=== PATIENT | female | born 1935 | race Caucasian/White ===

== ENCOUNTER → 2023-12-29 08:37 | Outpatient (CLI) | payer OTHER, SELFPAY ==
--- NOTE | 2023-12-29 | DI.RAD.S_ITS ---
PROCEDURE: FL BARIUM SWALLOW W SPEECH INDICATIONS: Dysphagia, unspecified COMPARISON: TECHNIQUE: Examination was conducted in conjunction with speech pathology per standard protocol. In the lateral projection, filming was performed of the patient swallowing. AP projection filming may also be performed with patient swallowing. COMPARISON: [facility], MR, MR NECK WITH/WITHOUT CONTRAST, 08/21/2023, 12:25. FINDINGS: Function: There is trace silent laryngotracheal penetration/aspiration. No pathologic vallecular pooling. Morphology: No cricopharyngeal bar is identified. No cervical esophageal webs. There is a small Zenker's diverticulum in the upper esophagus. No strictures. The patient was unable to swallow a calibrated barium pill. IMPRESSION: 1. Trace silent laryngeal penetration/aspiration. Please see separate speech pathologist's report. 2. A small Zenker's diverticulum. 3. The patient was unable to swallow a calibrated barium pill. Dictated by: Gerald West M.D. on 12/29/2023 at 13:49 Approved by: Gerald West M.D. on 12/29/2023 at 13:54
--- NOTE | 2023-12-29 16:52 | ST.SWALLOW ---
Visit Care Team Role Provider Type ONEIL Call Primary Care Provider Non-Staff Specialty: Nursing Address: [address] [place] [address], [id number] Email: Sohail Irene MD Attending Provider Physician Referring Provider Specialty: Ear, Nose, Throat Address: [address] [place] [address], [address] Email: [email or web address] Modified Barium Swallow Study MANAGER MARKET RESEARCH Modified Barium Swallow Study Start: 12/29/23 15:23 Freq: Status: Active Protocol: Document 12/29/23 15:23 LNK (Rec: 12/29/23 16:52 LNK [id number]) Modified Barium Swallow Study Total Time Visit Start Time 09:00 Visit Stop Time 09:45 Total Visit Minutes [address] Irene, ENT Setting Setting Outpatient Care Patient Information Identification Type Name,Date of Patient History Pt was seen for a Modified Barium Swallow Study at the referral of Dr. Irene, ENT. According to the pt and her physician's notes, the pt has experienced dysphagia for several years. She also stated that over the past 6-12 months her swallowing has become worse. She reports an ongoing difficulty with solid foods sticking in her throat; she sometimes has difficulty with swallowing liquids. Medications need to be crushed /chewed in order for her to swallow them. In 2019, pt reported having an endoscopy performed on [place] using an adult-sized scope instead of requested pediatric scope. She subsequently had severe dysphagia for a week. Since then she has been very careful when eating; she takes small bites and sips, eating slowly. She denies aspiration and/or swelling with eating or drinking. 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 Pt was seen in [place] by speech pathology for swallow exercises. Pt stated she thinks the exercises were beneficial. Subjective Observations Pt was seated in the fluoroscopy chair with directions and procedures described. Pt was familiar with the procedure and agreed to continue. Patient Positioning Position View Lat-A/P Imaging Lateral View Textures Administered Trials Presented Thin Liquid via Spoon (IDDSI 0 ),Thin Liquid via Cup (IDDSI 0 ),Extremely Thick Liquid via Spoon (IDDSI 4),Regular (IDDSI 7) Barium Tablet Yes The IDDSI Framework Protocol: IDDSI.1 Oral Impairment Source: The Modified Barium Swallow Impairment Profile (MBSImP??) Lip Closure No labial escape Tongue Control During Bolus Hold Cohesive bolus between tongue to palatal seal Bolus Preparation/Mastication Slow prolonged chewing/mashing with complete re-collection Bolus Transport/Lingual Motion Brisk tongue motion Oral Residue Complete oral clearance Initiation of Pharyngeal Swallow Bolus head in valleculae Additional Oral Impairment Observations OME and DKS were observed to be WNL. Pt's dentition was natural in good hygiene. Mastication was in a rotary pattern. The pt chewed the cookie trial well, needing time to create a soft bolus, per her typical swallow pattern. Oral phase was noted to be WFL . Pharyngeal Impairment Source: The Modified Barium Swallow Impairment Profile (MBSImP??) Soft Palate Elevation No bolus between soft palate & pharyngeal wall Laryngeal Elevation Part.sup.move.thyroid cart/ part.approx.arytenoids to epiglot.petiole Anterior Hyoid Excursion Partial anterior movement Epiglottic Movement Complete inversion Laryngeal Vestibular Closure Complete; no air/contrast in laryngeal vestibule Pharyngeal Stripping Wave Present - diminished Pharyngoesophageal Segment Opening Partial distention/partial duration; partial obstruction of flow Tongue Base Retraction Wide column of contrast/air betwn tongue base & post. pharyngeal wall Pharyngeal Residue Collection of residue within/ on pharyngeal structures Location Diffuse (>3 areas) Additional Pharyngeal Impairment Pt presented with complicated Observations pharyngeal swallow phase. Tongue base retraction was observed to be moderately weak with reduced hyolaryngeal elevation and movement; however, the epiglottis was observed to invert completely with good seal of the laryngeal vestibule. No penetration or aspiration was observed. Trials of semi solid and solids were most difficult for the pt to swallow. Liquids were swallowed with 2-3 swallow attempts. Solid and semisolid trials required 10+ swallow attempts with liquid wash need for the last two of those attempts. 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 This resulted in pooling above and below the occlusion. Additionally a small diverticulum on the right side of the esophagus was seen below the point of occlusion. The pt presented with severe pharyngeal phase dysphagia due to structural changes affecting bolus flow from the pharynx to the esophagus and stomach A/P View Textures Administered Trials Presented Thin Liquid via Cup (IDDSI 0) The IDDSI Framework Protocol: IDDSI.1 A/P View Observations Pharyngeal Contraction Unilateral bulging Esophageal Clearance Upright Position Esophageal retention w/ retrograde flow thru pharyngoesoph segment Esophageal Function Slowed Clearing,Reverse Peristalsis,Narrowing Additional A-P Observations In the LATERAL View, The upper esophageal sphincter opening was seen to be restricted in extension and duration, resulting in the need for many small boluses passing into the esophagus over multiple swallows (see pharyngeal phase description). 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 This resulted in pooling above and below the occlusion. Additionally a small diverticulum on the right side of the esophagus was seen below the point of occlusion. AP VIEW: In addition to the observations described in the previous paragraph, esophageal retention near the LES was noted with slowed clearing and narrowing. Unilateral (to the left) bulging re: pharyngeal contraction with the small diverticulum noted on the right side of the esophagus. Pharyngeal pooling was seen in the valeculla the pyriform sinuses and the diverticulum. The pt was unable to swallow a barium tablet whole and when cut in half. She needed to spit out each tablet trial. The lower esophagus had contrast retention observed with narrowing to the LES. Clinical Impressions Dysphagia Type Pharyngeal,Esophageal Findings The pt presented with severe pharyngoesophageal phase dysphagia due to structural changes affecting bolus flow from the oral cavity to the esophagus and stomach. Please review esophageal and pharyngeal phase summaries for specific details. Rehabilitation Potential Fair Patient Appropriate for Therapy Yes: Refresher therapy re: base of tongue exercises and review of swallow Recommendations Diet Liquids Order Thin (IDDSI 0) Diet Order Soft & Bite-sized (IDDSI 6) Medication Recommendation Crushed,Crushed in Carrier Comments Pt currently using swallow strategies that appear to be effective for her. Aspiration Precautions Recommended Precautions Alternate Liquids/Solids,Small Bites/Sips Additional Precautions Additional swallows a needed Treatment Plan Therapy Recommendations Outpatient Speech Therapy Recommended Referrals GI Consult,ENT Consult,Dietary Consult Therapy Strategy Recommendations Liquids from Cup,Small Bites and Sips,Alternate Liquids/ Solids
== END ==
PROVIDERS: PCP Nurse Practitioner Family; Referring Provider Otolaryngology; Visit Provider Otolaryngology
DX: K22.5 Diverticulum of esophagus, acquired (principal); R13.10 Dysphagia, unspecified
CPT/HCPCS: 74230; 92611

== ENCOUNTER 2024-04-21 16:45 | Outpatient (RCR) | payer OTHER, SELFPAY ==
--- NOTE | 2024-01-26 17:14 | ST.OPIE ---
Visit Care Team Role Provider Type ONEIL Call Family Provider Non-Staff Primary Care Provider Specialty: Nursing Address: [address] [place] [address], [address] Email: Sohail Irene MD Attending Provider Physician Referring Provider Specialty: Ear, Nose, Throat Address: [address] [place] [address], [address] Email: [email or web address] Speech-Language Pathology Initial Evaluation REVENUE ACCOUNTANT Clinical Swallow Evaluation Start: 01/26/24 16:46 Freq: Status: Active Protocol: Document 01/26/24 16:47 MA (Rec: 01/26/24 17:14 MA [id number]) Clinical Swallow Evaluation Session Time Visit Start Time 13:45 Visit Stop Time 14:30 Total Visit Minutes 45 Visit Information Visit Number Initial Evaluation Plan of Care Dates 01/26/24-04/27/24 Insurance Information [place] Referral Referring Provider BARRY Conner Reason for Referral Dysphagia Setting Assessment Location Outpatient Care Visit Type Note Type Initial evaluation Next Note Type Next Note Type Treatment Note Patient Information Identification Type Name History Pt is an 88 year old female seen this date for swallow evalution d/t dx of dysphagia, pharyngoesophageal. She was initially referred for a MBS at the referral of Dr. Irene ENT. She was then referred for speech therapy d/t MBS results. Pt was seen for a Modified According to the pt and her physician's notes, the pt has experienced dysphagia for several years. She also stated that over the past 6-12 months her swallowing has become worse. She reports an ongoing difficulty with solid foods sticking in her throat; she sometimes has difficulty with swallowing liquids. Medications need to be crushed /chewed in order for her to swallow them. In 2019, pt reported having an endoscopy performed on [place] using an adult-sized scope instead of requested pediatric scope. She subsequently had severe dysphagia for a week. Since then she has been very careful when eating; she takes small bites and sips, eating slowly. She denies aspiration and/or swelling with eating or drinking. 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 Pt was seen in [place] by speech pathology for swallow exercises. Pt stated she thinks the exercises were beneficial. [facility] impressions/ results from 12/29/23 are as follows: The pt presented with severe pharyngoesophageal phase dysphagia due to structural changes affecting bolus flow from the oral cavity to the esophagus and stomach. Please review esophageal and pharyngeal phase summaries for specific details. Rehabilitation Potential Fair Patient Appropriate for Therapy Yes: Refresher therapy re: base of tongue exercises and review of swallow Recommendations Diet Liquids Order Thin (IDDSI 0) Diet Order Soft & Bite-sized (IDDSI 6) Medication Recommendation Crushed,Crushed in Carrier Comments Pt currently using swallow strategies that appear to be effective for her. Aspiration Precautions Recommended Precautions Alternate Liquids/ Solids,Small Bites/Sips Additional Precautions Additional swallows a needed Treatment Plan Therapy Recommendations Outpatient Speech Therapy Recommended Referrals GI Consult,ENT Consult,Dietary Consult Therapy Strategy Recommendations Liquids from Cup,Small Bites and Sips,Alternate Liquids/ Solids Subjective Observations Pt reports she lives at home with her daughter. She reports baseline diet as regular solids and thin liquids, however can't eat too much. She denies any recent weight loss. She states she has to eat slowly and take small bites. She reports she has to call on Friday to schedule appointment with GI. She states she does not want to schedule any appointments until she knows when her GI appointment is. She said she will call outpatient clinic to schedule that appointment once she knows more about GI. Additionally, she reports she has swollen submandibular glands which may be impacting swallow. Reported by Patient/Caregiver Pain/Discomfort No Other Symptoms Difficulty swallowing liquids, Difficulty swallowing pills, Difficulty swallowing solids Current Diet Regular (IDDSI 7) Baseline Feeding Method Independent in self-feeding The IDDSI Framework Protocol: IDDSI.1 Objective Assessment Mental Status Alert,Responsive,Cooperative Comment OME was observed to be WNL. Pt's dentition was natural in good hygiene. Food and Liquid Trials Position During Assessment Upright (90 degrees) Liquids Trialed Thin (IDDSI 0) Solid Trials Regular (IDDSI 7) Administration Type Cup single sip,Self-feeding Oral Impairment Within normal limits Oral Phase Comments Pt consumed 2 jagdish crackers and about 4 oz of water via cup. For jagdish crackers, she demonstrated small bites, prolonged mastication however adequate bolus formation and control, timely ap transport, minimal residue. She independently alternated liquids/solids to assist with intake. For water via cup she demonstrated adequate sip size and rate, good oral acceptance and containment. Pharyngeal Impairment Mildly impaired Pharyngeal Phase Comments Pt reported no occurrences of food stuck in throat. No overt s/s of aspiration/penetration observed. She reports she has most difficulties swallowing gummy/chewy foods. Fatigue/Endurance Endurance WNL The IDDSI Framework Protocol: IDDSI.1 Findings Swallowing Function Pharyngoesophageal phase dysphagia Severity of Swallow Impairment Moderately impaired Based on Cognitive status Comment Pt presents with moderate pharyngoesophageal phase dysphagia based on impressions from MBS which include: A large CP bar was observed to occlude the esophagus at the C4-C6 level. This resulted in pooling above and below the occlusion. Additionally a small diverticulum on the right side of the esophagus was seen below the point of occlusion. ST is warranted in order to educate Pt on swallow exercises and ensure Pt is meeting primary nutrition/ hydration needs. Impact on Safety and Functioning Risk for inadequate nutrition/ hydration Recommendations Instrumental Assessment No Swallowing Treatment Yes Frequency 1x/week Duration 3 months Recommended Solids Soft & Bite-sized (IDDSI 6) Recommended Liquids Thin (IDDSI 0) Other Recommendations ST recommends soft solids and thin liquids or as tolerated by patient. ST also recommends Pt utilize safe swallowing strategies indicated below. ST provided educational handout on base of tongue strengthening exercises to assist with intake. Safety Precautions/Swallowing Remain upright (90 degrees) Recommendations during all oral intake,Upright position at least 30 minutes after meals,Small bites and sips when eating,Slow rate; swallow between bites, Alternate liquids and solids Medication Recommendations Crushed,Crushed in Carrier Comments Pt currently using swallow strategies that appear to be effective for her. Education Patient/Caregiver Education Described results of evaluation,Patient expressed understanding of evaluation, Patient expressed agreement with goals & treatment plans, Patient requires further education/training Goals Short-term Goals STG 1: Pt will tolerate prescribed diet with <5% overt s/s of aspiration/dysphagia with use of compensatory swallowing strategies and minimal cues. STG 2: Pt will complete hyolaryngeal strengthening exercises for improved pharyngeal phase of swallow with minimal cueing with 90% accuracy. Long-term Goals LTG 1: Patient will consume safest and most efficient least restrictive diet with no clinical s/s of aspiration or dysphagia 100% of the time in order to meet primary nutrition/hydration needs.
--- NOTE | 2024-01-26 17:14 | ST.OP.POCP ---
Addendum entered and electronically signed by Carlos Brown 01/26/24 17:15: POC is for an adult not pediatric. Original Note: Physical, Occupational & Speech Therapy At [facility] Visit Care Team Role Provider Type ONEIL Call Family Provider Non-Staff Primary Care Provider Address: [address] [place] [address], [address] Sohail Irene MD Attending Provider Physician Referring Provider Address: [address] [place] [address], [address] Speech Pathology Plan of Care Plan of Care Dates 01/26/24-04/27/24 Patient History Pt is an 88 year old female seen this date for swallow evalution d/t dx of dysphagia, pharyngoesophageal. She was initially referred for a MBS at the referral of Dr. Irene, ENT. She was then referred for speech therapy d/t MBS results. Pt was seen for a Modified According to the pt and her physician's notes, the pt has experienced dysphagia for several years. She also stated that over the past 6-12 months her swallowing has become worse. She reports an ongoing difficulty with solid foods sticking in her throat; she sometimes has difficulty with swallowing liquids. Medications need to be crushed /chewed in order for her to swallow them. In 2019, pt reported having an endoscopy performed on [place] using an adult-sized scope instead of requested pediatric scope. She subsequently had severe dysphagia for a week. Since then she has been very careful when eating; she takes small bites and sips, eating slowly. She denies aspiration and/or swelling with eating or drinking. 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 Pt was seen in [place] by speech pathology for swallow exercises. Pt stated she thinks the exercises were beneficial. MBS impressions/results from 12/29/23 are as follows: The pt presented with severe pharyngoesophageal phase dysphagia due to structural changes affecting bolus flow from the oral cavity to the esophagus and stomach. Please review esophageal and pharyngeal phase summaries for specific details. Rehabilitation Potential Fair Patient Appropriate for Therapy Yes: Refresher therapy re: base of tongue exercises and review of swallow Recommendations Diet Liquids Order Thin ( IDDSI 0) Diet Order Soft & Bite-sized (IDDSI 6) Medication Recommendation Crushed,Crushed in Carrier Comments Pt currently using swallow strategies that appear to be effective for her. Aspiration Precautions Recommended Precautions Alternate Liquids/Solids,Small Bites/Sips Additional Precautions Additional swallows a needed Treatment Plan Therapy Recommendations Outpatient Speech Therapy Recommended Referrals GI Consult,ENT Consult,Dietary Consult Therapy Strategy Recommendations Liquids from Cup,Small Bites and Sips,Alternate Liquids/ Solids Short-term Goals STG 1: Pt will tolerate prescribed diet with <5% overt s/s of aspiration/dysphagia with use of compensatory swallowing strategies and minimal cues. STG 2: Pt will complete hyolaryngeal strengthening exercises for improved pharyngeal phase of swallow with minimal cueing with 90% accuracy. Long-term Goals LTG 1: Patient will consume safest and most efficient least restrictive diet with no clinical s/s of aspiration or dysphagia 100% of the time in order to meet primary nutrition/ hydration needs. Electronically Signed by: STEFF Brown 01/26/24 [id number] If you are in agreement with this Plan of Care, please return a signed and dated copy. I have reviewed this Plan of Care and certify that the skilled therapy services above are required to meet the patient?s needs. Physician Signature Date Printed Name and Credentials Clinical Instructor Signature Printed Name and Credentials
--- NOTE | 2024-02-16 15:05 | ST.OPTN ---
Visit Care Team Role Provider Type ONEIL Call Family Provider Non-Staff Primary Care Provider Address: [address] [place] [address], [place], [address] Sohail Irene MD Attending Provider Physician Referring Provider Address: [facility] [place], [address] INFORMATION SUPPORT PROJECT MANAGER Treatment Note INFORMATION SUPPORT PROJECT MANAGER Treatment Note Start: 02/16/24 14:49 Freq: Status: Active Protocol: Document 02/16/24 14:49 MA (Rec: 02/16/24 14:53 MA [id number]) Speech Pathology Treatment Note Session Time Visit Start Time 14:30 Visit Stop Time 15:00 Total Visit Minutes 30 Visit Information Visit Number 2 Plan of Care Dates 01/26/24-04/27/24 Setting Treatment Setting Outpatient Care General Information Patient History Pt is an 88 year old female seen this date for swallow evalution d/t dx of dysphagia, pharyngoesophageal. She was initially referred for a MBS at the referral of Dr. Irene, ENT. She was then referred for speech therapy d/t MBS results. Pt was seen for a Modified According to the pt and her physician's notes, the pt has experienced dysphagia for several years. She also stated that over the past 6-12 months her swallowing has become worse. She reports an ongoing difficulty with solid foods sticking in her throat; she sometimes has difficulty with swallowing liquids. Medications need to be crushed /chewed in order for her to swallow them. In 2019, pt reported having an endoscopy performed on [place] using an adult-sized scope instead of requested pediatric scope. She subsequently had severe dysphagia for a week. Since then she has been very careful when eating; she takes small bites and sips, eating slowly. She denies aspiration and/or swelling with eating or drinking. 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 Pt was seen in [place] by speech pathology for swallow exercises. Pt stated she thinks the exercises were beneficial. MBS impressions/ results from 12/29/23 are as follows: The pt presented with severe pharyngoesophageal phase dysphagia due to structural changes affecting bolus flow from the oral cavity to the esophagus and stomach. Please review esophageal and pharyngeal phase summaries for specific details. Rehabilitation Potential Fair Patient Appropriate for Therapy Yes: Refresher therapy re: base of tongue exercises and review of swallow Recommendations Diet Liquids Order Thin (IDDSI 0) Diet Order Soft & Bite-sized (IDDSI 6) Medication Recommendation Crushed,Crushed in Carrier Comments Pt currently using swallow strategies that appear to be effective for her. Aspiration Precautions Recommended Precautions Alternate Liquids/ Solids,Small Bites/Sips Additional Precautions Additional swallows a needed Treatment Plan Therapy Recommendations Outpatient Speech Therapy Recommended Referrals GI Consult,ENT Consult,Dietary Consult Therapy Strategy Recommendations Liquids from Cup,Small Bites and Sips,Alternate Liquids/ Solids Subjective Observations/Patient Presentation Pt arrived to therapy on time. Pt reports she has been very cautious about when she is eating. Objective Treatment Activities Swallow exercises Assessment Patient Response to Treatment Excellent Rehab Potential Excellent Impairments Identified Swallow Assessment of Improvement Pt brought in swallow exercises provided during last session. She reports she has been practicing exercises at home. Pt reports no changes to swallow. ST educated pt additional swallow exercises such as Wen and the Shaker exercise in order to address cricopharyngeal muscle dysfunction. ST provided a visual demonstration of exercises. Pt able to demonstrate understanding. She exhibited mild difficulties raising head during Shaker with ST recommending she start small and build up to 30 reps at a time and to not continue if any pain or discomfort arises. She completed all her swallow exercises, including Sierra and Effortful swallow 10x/each. Pt reports she has an appointment with GI the beginning of February and will schedule her next appointment for after that.
--- NOTE | 2024-03-15 14:14 | ST.OPTN ---
Visit Care Team Role Provider Type ONEIL Call Family Provider Non-Staff Primary Care Provider Address: [address] [place] [address], [place], [address] Sohail Irene MD Attending Provider Physician Referring Provider Address: [facility] [place], [address] SHINGLE BOLT CUTTER Treatment Note SHINGLE BOLT CUTTER Treatment Note Start: 02/16/24 14:49 Freq: Status: Active Protocol: Document 03/15/24 14:04 MA (Rec: 03/15/24 14:14 MA [id number]) Speech Pathology Treatment Note Session Time Visit Start Time 13:45 Visit Stop Time 14:20 Total Visit Minutes 35 Visit Information Visit Number 3 Plan of Care Dates 01/26/24-04/27/24 Setting Treatment Setting Outpatient Care General Information Patient History Pt is an 88 year old female seen this date for swallow evalution d/t dx of dysphagia, pharyngoesophageal. She was initially referred for a MBS at the referral of Dr. Irene, ENT. She was then referred for speech therapy d/t MBS results. Pt was seen for a Modified According to the pt and her physician's notes, the pt has experienced dysphagia for several years. She also stated that over the past 6-12 months her swallowing has become worse. She reports an ongoing difficulty with solid foods sticking in her throat; she sometimes has difficulty with swallowing liquids. Medications need to be crushed /chewed in order for her to swallow them. In 2019, pt reported having an endoscopy performed on [place] using an adult-sized scope instead of requested pediatric scope. She subsequently had severe dysphagia for a week. Since then she has been very careful when eating; she takes small bites and sips, eating slowly. She denies aspiration and/or swelling with eating or drinking. 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 Pt was seen in [place] by speech pathology for swallow exercises. Pt stated she thinks the exercises were beneficial. MBS impressions/ results from 12/29/23 are as follows: The pt presented with severe pharyngoesophageal phase dysphagia due to structural changes affecting bolus flow from the oral cavity to the esophagus and stomach. Please review esophageal and pharyngeal phase summaries for specific details. Rehabilitation Potential Fair Patient Appropriate for Therapy Yes: Refresher therapy re: base of tongue exercises and review of swallow Recommendations Diet Liquids Order Thin (IDDSI 0) Diet Order Soft & Bite-sized (IDDSI 6) Medication Recommendation Crushed,Crushed in Carrier Comments Pt currently using swallow strategies that appear to be effective for her. Aspiration Precautions Recommended Precautions Alternate Liquids/ Solids,Small Bites/Sips Additional Precautions Additional swallows a needed Treatment Plan Therapy Recommendations Outpatient Speech Therapy Recommended Referrals GI Consult,ENT Consult,Dietary Consult Therapy Strategy Recommendations Liquids from Cup,Small Bites and Sips,Alternate Liquids/ Solids Subjective Observations/Patient Presentation Pt arrived to therapy on time. Pt brought in her swallow exercises and reported she has been practicing and her swallow. She reports she will see the ENT at the beginning of March. Objective Treatment Activities Swallow exercises Assessment Patient Response to Treatment Excellent Rehab Potential Excellent Impairments Identified Swallow Assessment of Improvement Pt brought in swallow exercises provided during last session. She reports she has been practicing exercises at home. She reports difficulties with Mendolsohn. ST provided a visual demonstration and provided verbal instructions. Pt demonstrated understanding. Pt reports no difficulties with other exercises, however can only do 5 reps of Shaker at a time. ST recommends she start with 5 reps and build up to 30 reps at a time and to not continue if any pain or discomfort arises. She completed all her swallow exercises, including Sierra and Effortful swallow 10x/each . ST provided regular solids and thin liquids for Pt to utilize while completing swallow exercises. She consumed 1 jagdish cracker and 4 oz of thin juice via cup. She utilized effortful swallow with all swallows. For reg solids she demonstrated small bites, slow rate, no overt s/s of aspiration. She independently alternated liquids/solids to assist with intake and also reported she makes she to eat slow. ST recommends Pt continue swallow exercises at home.
--- NOTE | 2024-04-21 17:10 | ST.OPDS ---
Visit Care Team Role Provider Type ONEIL Wells Family Provider Non-Staff Primary Care Provider Address: [address] [place] [address], [place], [address] Sohail Irene MD Attending Provider Physician Referring Provider Address: [facility] [place], [address] ELECTRICAL ELECTRONICS TECHNICIAN Treatment Note ELECTRICAL ELECTRONICS TECHNICIAN Treatment Note Start: 02/16/24 14:49 Freq: Status: Active Protocol: Document 04/21/24 16:40 MA (Rec: 04/21/24 17:10 MA [id number]) Speech Pathology Treatment Note Session Time Visit Start Time 16:45 Visit Stop Time 17:15 Total Visit Minutes 30 Visit Information Visit Number 4 Plan of Care Dates 01/26/24-04/27/24 Setting Treatment Setting Outpatient Care General Information Patient History Pt is an 88 year old female seen this date for swallow evalution d/t dx of dysphagia, pharyngoesophageal. She was initially referred for a MBS at the referral of Dr. Irene, ENT. She was then referred for speech therapy d/t MBS results. Pt was seen for a Modified According to the pt and her physician's notes, the pt has experienced dysphagia for several years. She also stated that over the past 6-12 months her swallowing has become worse. She reports an ongoing difficulty with solid foods sticking in her throat; she sometimes has difficulty with swallowing liquids. Medications need to be crushed /chewed in order for her to swallow them. In 2019, pt reported having an endoscopy performed on [place] using an adult-sized scope instead of requested pediatric scope. She subsequently had severe dysphagia for a week. Since then she has been very careful when eating; she takes small bites and sips, eating slowly. She denies aspiration and/or swelling with eating or drinking. 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 Pt was seen in [place] by speech pathology for swallow exercises. Pt stated she thinks the exercises were beneficial. MBS impressions/ results from 12/29/23 are as follows: The pt presented with severe pharyngoesophageal phase dysphagia due to structural changes affecting bolus flow from the oral cavity to the esophagus and stomach. Please review esophageal and pharyngeal phase summaries for specific details. Rehabilitation Potential Fair Patient Appropriate for Therapy Yes: Refresher therapy re: base of tongue exercises and review of swallow Recommendations Diet Liquids Order Thin (IDDSI 0) Diet Order Soft & Bite-sized (IDDSI 6) Medication Recommendation Crushed,Crushed in Carrier Comments Pt currently using swallow strategies that appear to be effective for her. Aspiration Precautions Recommended Precautions Alternate Liquids/ Solids,Small Bites/Sips Additional Precautions Additional swallows a needed Treatment Plan Therapy Recommendations Outpatient Speech Therapy Recommended Referrals GI Consult,ENT Consult,Dietary Consult Therapy Strategy Recommendations Liquids from Cup,Small Bites and Sips,Alternate Liquids/ Solids Subjective Observations/Patient Presentation Pt arrived to therapy on time. Pt brought in her swallow exercises and reported she has been practicing and her swallow has improved slightly. She states that she saw the GI doctor recently, however reports not much came of it. Objective Short Term Goals STG 1: Pt will tolerate prescribed diet with <5% overt s/s of aspiration/dysphagia with use of compensatory swallowing strategies and minimal cues.- MET STG 2: Pt will complete hyolaryngeal strengthening exercises for improved pharyngeal phase of swallow with minimal cueing with 90% accuracy.- MET Cloth Napping Supervisor Goals LTG 1: Patient will consume safest and most efficient least restrictive diet with no clinical s/s of aspiration or dysphagia 100% of the time in order to meet primary nutrition/hydration needs.- MET Treatment Activities Swallow exercises Assessment Patient Response to Treatment Excellent Rehab Potential Excellent Impairments Identified Swallow Progress Towards Goals Goals Met,Appropriate for Discharge Assessment of Overall Progress Improving Assessment of Improvement Pt brought in swallow exercises provided during last session. She completed exercises, specifically Mend[place]ohn, Sierra, and effortful swallow 10x each requiring no cues. She reports she has not had any occurrences of food stuck in throat since doing swallow exercises. ST facilitated conversation in regards to going forward with therapy. Pt reports she would like to be discharged at this time d/t independent with swallow exercises and meeting goals with improved swallow function . ST encouraged Pt continue to complete swallow exercises at home and to return to therapy with a new referral if swallow becomes worse. Pt verbalized understanding. Reviewed with Patient Goals,Progress Being Made,Home Exercise Program Plan Frequency of Treatment No Further Therapy
== END 2024-04-22 15:22 | disposition home or self-care (01) ==
LOC: SP 16:45
PROVIDERS: Family Provider Nurse Practitioner Family; PCP Nurse Practitioner Family; Referring Provider Otolaryngology; Visit Provider Otolaryngology
DX: R13.14 Dysphagia, pharyngoesophageal phase (principal)
CPT/HCPCS: 92526; 92610

== ENCOUNTER 2025-08-03 13:45 | Outpatient (RCR) | payer OTHER, SELFPAY ==
--- NOTE | 2025-04-22 14:32 | PT.OIE ---
Current Diagnoses Other chronic pain (04/22/25) Pain in right shoulder (04/22/25) Pain in left shoulder (04/22/25) Pain in thoracic spine (04/22/25) Visit Care Team Role Provider Type ONEIL Harrison Attending Provider Non-Staff Family Provider Primary Care Provider Referring Provider Specialty: Medical Address: [address] [place] [address], [address] Email: Physical Therapy Initial Evaluation PT-OP-A Visit Information Start: 04/22/25 09:04 Freq: Status: Active Protocol: Document 04/22/25 13:59 KW (Rec: 04/22/25 14:29 KW Laptop) Out-Patient Physical Therapy Visit Information Visit Information Visit Type Initial Evaluation Visit Start Time 09:00 Visit Stop Time 09:45 Visit Number 1 Evaluation Information Evaluation Date 04/22/25 Precautions Precautions none PT-OP-B Current Condition Start: 04/22/25 09:04 Freq: Status: Active Protocol: Document 04/22/25 13:59 KW (Rec: 04/22/25 14:29 KW Laptop) Current Condition History of Current Condition Onset Date chronic Current Complaints B shoulder pain, upper thoracic pain, B hip and knee pain, toe pain History of Current Condition 89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 She walks 1/2 mile daily in community. Chooses to not use cane, trekking poles or walker. She is still driving. She is very limited in her eating due to a very extensive swallowing issue causes by trauma of a large tube during a medical procedure. Prior Treatments and Tests has not had dexa scan PT-OP-C Subjective Start: 04/22/25 09:04 Freq: Status: Active Protocol: Document 04/22/25 13:59 KW (Rec: 04/22/25 14:29 KW Laptop) Patient Questionnaires Oswestry Low Back Index Oswestry Score 18% Oswestry Impairment 1 to 19% Impaired (Score 1-19) Quick Dash- Upper Extremity Quick Dash UE Score 23% Quick Dash UE Impairment 20 to 39% Impaired (Score 20- 39) OP-PT Pain Assessment Pain Assessment Grid Paper Pain Assessment Grid Completed Yes Location R shoulder Pain Location Details r shoulder, L shoulder, knees, back, hips all the same Intensity 5 Scale Used Numeric (0 - 10) Description Aching,Burning,Cramping,Dull, Pinching,Pulling,Sharp Frequency Frequent Pain Aggravating Factors Position,Changing Position,ADL 's Pain Alleviating Factors Cold,Heat,Medication PT-OP-D Balance Start: 04/22/25 09:04 Freq: Status: Active Protocol: Document 04/22/25 13:59 KW (Rec: 04/22/25 14:29 KW Laptop) OP-PT Balance Assessment Standing Balance Static Standing Balance Ability Good Dynamic Standing Balance Ability Fair Standing Balance Comments LOB with head turns Lara Fall Scale Copyright Permission PT-OP-E Functional Tests Start: 04/22/25 09:04 Freq: Status: Active Protocol: Document 04/22/25 13:59 KW (Rec: 04/22/25 14:29 KW Laptop) Functional Tests 30 Second Sit to Stand Test Score 5 Comments pain in legs and feet Timed Up and Go (TUG) Score 12 TUG Impairment Rating 20 to <40% Impaired (Score 12- 13) PT-OP-F Manual Assessment Start: 04/22/25 09:04 Freq: Status: Active Protocol: Document 04/22/25 13:59 KW (Rec: 04/22/25 14:29 KW Laptop) Manual Assessments Joint Mobility Assessment Joint Mobility Assessment stiffness B hips posterior/ inferior capsules stiffness T-spine, kyphosis PT-OP-G Mobility & Gait Start: 04/22/25 09:04 Freq: Status: Active Protocol: Document 04/22/25 13:59 KW (Rec: 04/22/25 14:29 KW Laptop) OP Mobility Evaluation Bed Mobility Rolling cues for log roll, breathing, bending knees Supine to and from Sit cues to keep knees flexed, breathing Transfers Sit to Stand indep with use of hands Functional Movements Squats Indep, pain in hips/knees, thighs OP Gait Assessment Gait Gait Assistance Required: Standby Assistance Distance (Feet) 500 Assistive Devices Assistive Device None Gait Deviations General Gait Pattern Flexed Trunk Factors Limiting Gait Function Factors Limiting Gait Function Poor Balance Comments Gait Comments significant FHP, LOB with head turns PT-OP-J Posture/Palpation/Skin Start: 04/22/25 09:04 Freq: Status: Active Protocol: Document 04/22/25 13:59 KW (Rec: 04/22/25 14:29 KW Laptop) Posture Evaluation Position Standing Head/C-Spine Posture Flexed,Forward Head Shoulder Posture (L) Rounded,(R) Rounded Sitting Evaluation View Lateral Head/C-Spine Posture Flexed,Forward Head T-Spine Posture Rotation Left Shoulder Posture (L) Rounded,(R) Rounded Scapula Posture (L) Rotated Down,(R) Rotated Down Pelvis Posture Posterior Tilted Weight Distribution Weight Shifted Right PT-OP-K Range of Motion Start: 04/22/25 09:04 Freq: Status: Active Protocol: Document 04/22/25 13:59 KW (Rec: 04/22/25 14:29 KW Laptop) Lumbar Spine Range of Motion Lumbar Spine Active Testing Position Standing Flexion 70 Comments fingers to top of shoes, forward bend Shoulder Goniometric Range of Motion Shoulder left Shoulder ROM WFL Yes Testing Position Supine right Shoulder ROM WFL No Testing Position Supine Flexion 120 External Rotation at 90 degrees 80 Abduction Internal Rotation 90 Hip Goniometric Range of Motion Hip left Hip ROM WFL No Testing Position Supine Flexion w/Knee Flexed 90 Straight Leg Raise 75 Internal Rotation 10 External Rotation 25 right Hip ROM WFL No Testing Position Supine Flexion w/Knee Flexed 90 Straight Leg Raise 75 Internal Rotation 10 External Rotation 25 Knee Goniometric Range of Motion Knee Left Knee ROM WFL No Patient Position Supine Flexion Passive (degrees) 105 Extension Passive (degrees) 0 Right Knee ROM WFL No Patient Position Supine Flexion Passive (degrees) 110 Extension Passive (degrees) 0 PT-OP-M Strength Start: 04/22/25 09:04 Freq: Status: Active Protocol: Document 04/22/25 13:59 KW (Rec: 04/22/25 14:29 KW Laptop) Shoulder Strength Shoulder Manual Muscle Testing Right Flexion 4 Good Abduction (C5) 4 Good External Rotation 4 Good Internal Rotation 4 Good Left Flexion 4 Good Extension 4 Good Abduction (C5) 4 Good External Rotation 4 Good Internal Rotation 4 Good Hip Strength Hip Manual Muscle Testing Left Flexion (L2) 4- Good- Abduction 4- Good- External Rotation 4- Good- Internal Rotation 4- Good- Right Flexion (L2) 4- Good- Abduction 4- Good- External Rotation 4- Good- Internal Rotation 4- Good- Knee Strength Knee Manual Muscle Testing Left Flexion (S2) 4- Good- Extension (L3) 4- Good- Right Flexion (S2) 4- Good- Extension (L3) 4- Good- PT-OP-Q Treatments Start: 04/22/25 09:04 Freq: Status: Active Protocol: Document 04/22/25 13:59 KW (Rec: 04/22/25 14:29 KW Laptop) Therapeutic Exercises Standing Exercises gastroc stretch Standing Exercise Name using wall and JOSE wedge Side bilateral Reps/Minutes 3 x 30 sec Neuro Re-Education Treatment Balance Activities standing chair balance Details handout issued Comments stand at chair, back to corner or bed narrow BOW, tandem with head turns Self-Care/Home Management Treatment Education Patient Education Body Mechanics,Fall Risk,Home Exercise Program,Joint Protection,Pain Management, Posture,Safety Caregiver Education recommend trekking poles for balance and posture shoe list issued for more supportive shoes posture education PT-OP-T Assessment and Plan Start: 04/22/25 09:04 Freq: Status: Active Protocol: Document 04/22/25 13:59 KW (Rec: 04/22/25 14:29 KW Laptop) Physical Therapy Assessment Rehab Potential Rehabilitation Potential Fair Evaluation Complexity Number of Personal Factors/Comorbidities 3 or More Number of Body Systems Impaired 4 or More Clinical Presentation at Evaluation Unstable Impairments Impairments Activity Tolerance,Balance, Edema,Functional Activities, Gait,Pain,Posture,ROM,Strength Goals Four Impairment impaired gait Short Term Goal (STG) patient ambulates with at least 1 trekking pole to improve balance and posture Three Impairment lack of HEP Short Term Goal (STG) pt demonstrates indep with HEP STG Duration 6 weeks Two Impairment impaired DASH score 23 % Short Term Goal (STG) improve DASH score 50% STG Duration 6 weeks One Impairment LEFS score 18% Short Term Goal (STG) improved LEFS score 50% STG Duration 6 weeks Assessment Summary Assessment 89 yo female presents to PT with multiple joint pains. She has NOT had a dexa scan and has significant Sarcopenia. She has lost significant wait since her swallowing issues started, per her daughter. She has a difficult affect and struggles to communicate her needs during evaluation. She is at significant risk for falls and really should be using an assistive device. Pt will benefit from a course of skilled PT to address deficits in strength, ROM, balance, gait in order to maximize her independence. Physical Therapy Plan Frequency and Duration Frequency of Treatment 2x/Week Duration of treatment (weeks) 6 Plan of Care Start Date 04/22/25 Plan of Care End Date 06/22/25 Therapeutic Interventions Therapeutic Interventions Balance Training,Gait Training ,Home Exercise Program,Joint Mobilizations,Manual Therapy, Neuromuscular Re-education, Orthotic/Prosthetic Management ,Patient/Caregiver Education, Self-Care/Home Management,Soft Tissue Mobilization,Taping, Therapeutic Activities, Therapeutic Exercises Modalities Cold Pack/Ice Massage,Electric Stimulation,Hot Packs, Ultrasound Next Visit Focus/Plan Next Note Type Treatment Note Next Visit Plan Nu raymond // bars for balance gait with head turns and trekking pole
--- NOTE | 2025-04-27 16:57 | PT.OTN ---
Current Diagnoses Other chronic pain (04/27/25) Pain in right shoulder (04/27/25) Pain in left shoulder (04/27/25) Pain in thoracic spine (04/27/25) Physical Therapy Treatment Note PT-OP-A Visit Information Start: 04/22/25 09:04 Freq: Status: Active Protocol: Document 04/27/25 16:18 KW (Rec: 04/27/25 16:57 KW Laptop) Out-Patient Physical Therapy Visit Information Visit Information Visit Type Treatment Note Visit Start Time 16:00 Visit Stop Time 16:45 Visit Number 2 Evaluation Information Evaluation Date 04/22/25 Precautions Precautions none PT-OP-B Current Condition Start: 04/22/25 09:04 Freq: Status: Active Protocol: Document 04/22/25 13:59 KW (Rec: 04/22/25 14:29 KW Laptop) Current Condition History of Current Condition Onset Date chronic Current Complaints B shoulder pain, upper thoracic pain, B hip and knee pain, toe pain 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 She walks 1/2 mile daily in community. Chooses to not use cane, trekking poles or walker. She is still driving. She is very limited in her eating due to a very extensive swallowing issue causes by trauma of a large tube during a medical procedure. Prior Treatments and has not had dexa scan Tests PT-OP-C Subjective Start: 04/22/25 09:04 Freq: Status: Active Protocol: Document 04/27/25 16:18 KW (Rec: 04/27/25 16:57 KW Laptop) OP-PT Subjective Patient Comments Patient Comments I've never done PT before and I think I really need this. No, I don't walk with a cane or stick when I go walk around the park. PT-OP-D Balance Start: 04/22/25 09:04 Freq: Status: Active Protocol: Document 04/22/25 13:59 KW (Rec: 04/22/25 14:29 KW Laptop) OP-PT Balance Assessment Standing Balance Static Standing Good Balance Ability Dynamic Standing Fair Balance Ability Standing Balance LOB with head turns Comments Lara Fall Scale Copyright Permission PT-OP-E Functional Tests Start: 04/22/25 09:04 Freq: Status: Active Protocol: Document 04/22/25 13:59 KW (Rec: 04/22/25 14:29 KW Laptop) Functional Tests 30 Second Sit to Stand Test Score 5 Comments pain in legs and feet Timed Up and Go (TUG) Score 12 TUG Impairment 20 to <40% Impaired (Score 12-13) Rating PT-OP-F Manual Assessment Start: 04/22/25 09:04 Freq: Status: Active Protocol: Document 04/22/25 13:59 KW (Rec: 04/22/25 14:29 KW Laptop) Manual Assessments Joint Mobility Assessment Joint Mobility stiffness B hips posterior/inferior capsules Assessment stiffness T-spine, kyphosis PT-OP-G Mobility & Gait Start: 04/22/25 09:04 Freq: Status: Active Protocol: Document 04/22/25 13:59 KW (Rec: 04/22/25 14:29 KW Laptop) OP Mobility Evaluation Bed Mobility Rolling cues for log roll, breathing, bending knees Supine to and from cues to keep knees flexed, breathing Sit Transfers Sit to Stand indep with use of hands Functional Movements Squats Indep, pain in hips/knees, thighs OP Gait Assessment Gait Gait Assistance Standby Assistance Required: Distance (Feet) 500 Assistive Devices Assistive Device None Gait Deviations General Gait Pattern Flexed Trunk Factors Limiting Gait Function Factors Limiting Poor Balance Gait Function Comments Gait Comments significant FHP, LOB with head turns PT-OP-J Posture/Palpation/Skin Start: 04/22/25 09:04 Freq: Status: Active Protocol: Document 04/22/25 13:59 KW (Rec: 04/22/25 14:29 KW Laptop) Posture Evaluation Position Standing Head/C-Spine Posture Flexed,Forward Head Shoulder Posture (L) Rounded,(R) Rounded Sitting Evaluation View Lateral Head/C-Spine Posture Flexed,Forward Head T-Spine Posture Rotation Left Shoulder Posture (L) Rounded,(R) Rounded Scapula Posture (L) Rotated Down,(R) Rotated Down Pelvis Posture Posterior Tilted Weight Distribution Weight Shifted Right PT-OP-K Range of Motion Start: 04/22/25 09:04 Freq: Status: Active Protocol: Document 04/22/25 13:59 KW (Rec: 04/22/25 14:29 KW Laptop) Lumbar Spine Range of Motion Lumbar Spine Active Testing Position Standing Flexion 70 Comments fingers to top of shoes, forward bend Shoulder Goniometric Range of Motion Shoulder left Shoulder ROM WFL Yes Testing Position Supine right Shoulder ROM WFL No Testing Position Supine Flexion 120 External Rotation at 80 90 degrees Abduction Internal Rotation 90 Hip Goniometric Range of Motion Hip left Hip ROM WFL No Testing Position Supine Flexion w/Knee 90 Flexed Straight Leg Raise 75 Internal Rotation 10 External Rotation 25 right Hip ROM WFL No Testing Position Supine Flexion w/Knee 90 Flexed Straight Leg Raise 75 Internal Rotation 10 External Rotation 25 Knee Goniometric Range of Motion Knee Left Knee ROM WFL No Patient Position Supine Flexion Passive ( 105 degrees) Extension Passive ( 0 degrees) Right Knee ROM WFL No Patient Position Supine Flexion Passive ( 110 degrees) Extension Passive ( 0 degrees) PT-OP-M Strength Start: 04/22/25 09:04 Freq: Status: Active Protocol: Document 04/22/25 13:59 KW (Rec: 04/22/25 14:29 KW Laptop) Shoulder Strength Shoulder Manual Muscle Testing Right Flexion 4 Good Abduction (C5) 4 Good External Rotation 4 Good Internal Rotation 4 Good Left Flexion 4 Good Extension 4 Good Abduction (C5) 4 Good External Rotation 4 Good Internal Rotation 4 Good Hip Strength Hip Manual Muscle Testing Left Flexion (L2) 4- Good- Abduction 4- Good- External Rotation 4- Good- Internal Rotation 4- Good- Right Flexion (L2) 4- Good- Abduction 4- Good- External Rotation 4- Good- Internal Rotation 4- Good- Knee Strength Knee Manual Muscle Testing Left Flexion (S2) 4- Good- Extension (L3) 4- Good- Right Flexion (S2) 4- Good- Extension (L3) 4- Good- PT-OP-Q Treatments Start: 04/22/25 09:04 Freq: Status: Active Protocol: Document 04/27/25 16:18 KW (Rec: 04/27/25 16:57 KW Laptop) Cardio Equipment Recumbent Stepper (Sci-Fit) Duration (Minutes) 6 Other BP 145/76 O2 Sats 95% HR 73 Therapeutic Exercises Standing Exercises Hip swings Standing Exercise hip swings, squats with good alignment, heel raises Name Reps/Minutes 10 each gastroc stretch Standing Exercise using wall and JOSE wedge Name Side bilateral Reps/Minutes 3 x 30 sec Gait Training Gait Activity head turns Description walking with head turns Distance/Duration 150 ft Comments head turns, R/L, cues for head up and arm swings Neuro Re-Education Treatment Balance Activities foam pad march Details foam pad marching, wt shifting, head up eyes up light gymnastics coach BOSU Details BOSU wt shift AP/ML, head up, light gymnastics coach on bars Comments CGA with belt stepping over hurdles Details step over, front/back, sideways L/R Reps/Duration x 10 // bars series Details tandem stance head turns, narrow DORIS, head turns Reps/Duration 3 min PT-OP-T Assessment and Plan Start: 04/22/25 09:04 Freq: Status: Active Protocol: Document 04/27/25 16:18 KW (Rec: 04/27/25 16:57 KW Laptop) Physical Therapy Assessment Rehab Potential Rehabilitation Fair Potential Evaluation Complexity Number of Personal 3 or More Factors/ Comorbidities Number of Body 4 or More Systems Impaired Clinical Unstable Presentation at Evaluation Impairments Impairments Activity Tolerance,Balance,Edema,Functional Activities, Gait,Pain,Posture,ROM,Strength Goals Four Impairment impaired gait Short Term Goal (STG patient ambulates with at least 1 trekking pole to ) improve balance and posture Three Impairment lack of HEP Short Term Goal (STG pt demonstrates indep with HEP ) STG Duration 6 weeks Two Impairment impaired DASH score 23 % Short Term Goal (STG improve DASH score 50% ) STG Duration 6 weeks One Impairment LEFS score 18% Short Term Goal (STG improved LEFS score 50% ) STG Duration 6 weeks Assessment Summary Assessment excellent participation today, Systolic BP slightly elevated 145 to 150, will monitor. STRONGLY recommend she walk with a trekking pole but she refuses, orthopedic assistant shoes are very loose and unstable on her but she insists they are comfortable and supportive. Physical Therapy Plan Frequency and Duration Frequency of 2x/Week Treatment Duration of 6 treatment (weeks) Plan of Care Start 04/22/25 Date Plan of Care End 06/22/25 Date Therapeutic Interventions Therapeutic Balance Training,Gait Training,Home Exercise Program, Interventions Joint Mobilizations,Manual Therapy,Neuromuscular Re- education,Orthotic/Prosthetic Management,Patient/ Caregiver Education,Self-Care/Home Management,Soft Tissue Mobilization,Taping,Therapeutic Activities, Therapeutic Exercises Modalities Cold Pack/Ice Massage,Electric Stimulation,Hot Packs, Ultrasound Next Visit Focus/Plan Next Note Type Treatment Note Next Visit Plan Nu raymond // bars for balance gait with head turns and trekking pole trial possibly shuttle
--- NOTE | 2025-04-29 16:54 | PT.OTN ---
Current Diagnoses Other chronic pain (04/29/25) Pain in right shoulder (04/29/25) Pain in left shoulder (04/29/25) Pain in thoracic spine (04/29/25) Physical Therapy Treatment Note PT-OP-A Visit Information Start: 04/22/25 09:04 Freq: Status: Active Protocol: Document 04/29/25 14:02 NBM (Rec: 04/29/25 14:41 NBM Laptop) Out-Patient Physical Therapy Visit Information Visit Information Visit Type Treatment Note Visit Note VS: 140/68, 75 bpm SPO2 100% Visit Start Time 13:55 Visit Stop Time 14:38 Visit Number 3 Number of [employer] D[employer]ER OPERATOR Visits 1 Evaluation Information Evaluation Date 04/22/25 Precautions Precautions none PT-OP-B Current Condition Start: 04/22/25 09:04 Freq: Status: Active Protocol: Document 04/22/25 13:59 KW (Rec: 04/22/25 14:29 KW Laptop) Current Condition History of Current Condition Onset Date chronic Current Complaints B shoulder pain, upper thoracic pain, B hip and knee pain, toe pain 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 She walks 1/2 mile daily in community. Chooses to not use cane, trekking poles or walker. She is still driving. She is very limited in her eating due to a very extensive swallowing issue causes by trauma of a large tube during a medical procedure. Prior Treatments and has not had dexa scan Tests PT-OP-C Subjective Start: 04/22/25 09:04 Freq: Status: Active Protocol: Document 04/29/25 14:02 NBM (Rec: 04/29/25 14:41 NBM Laptop) OP-PT Subjective Patient Comments Patient Comments Sarah reports she gets pain when walking or climbing and she gets R leg pain. She is wearing different shoes today and explains she has a cushion she put near the toes. Her R ankle swelling started a couple of weeks ago and she'll see Dr next week. PT-OP-D Balance Start: 04/22/25 09:04 Freq: Status: Active Protocol: Document 04/22/25 13:59 KW (Rec: 04/22/25 14:29 KW Laptop) OP-PT Balance Assessment Standing Balance Static Standing Good Balance Ability Dynamic Standing Fair Balance Ability Standing Balance LOB with head turns Comments Lraa Fall Scale Copyright Permission PT-OP-E Functional Tests Start: 04/22/25 09:04 Freq: Status: Active Protocol: Document 04/22/25 13:59 KW (Rec: 04/22/25 14:29 KW Laptop) Functional Tests 30 Second Sit to Stand Test Score 5 Comments pain in legs and feet Timed Up and Go (TUG) Score 12 TUG Impairment 20 to <40% Impaired (Score 12-13) Rating PT-OP-F Manual Assessment Start: 04/22/25 09:04 Freq: Status: Active Protocol: Document 04/22/25 13:59 KW (Rec: 04/22/25 14:29 KW Laptop) Manual Assessments Joint Mobility Assessment Joint Mobility stiffness B hips posterior/inferior capsules Assessment stiffness T-spine, kyphosis PT-OP-G Mobility & Gait Start: 04/22/25 09:04 Freq: Status: Active Protocol: Document 04/22/25 13:59 KW (Rec: 04/22/25 14:29 KW Laptop) OP Mobility Evaluation Bed Mobility Rolling cues for log roll, breathing, bending knees Supine to and from cues to keep knees flexed, breathing Sit Transfers Sit to Stand indep with use of hands Functional Movements Squats Indep, pain in hips/knees, thighs OP Gait Assessment Gait Gait Assistance Standby Assistance Required: Distance (Feet) 500 Assistive Devices Assistive Device None Gait Deviations General Gait Pattern Flexed Trunk Factors Limiting Gait Function Factors Limiting Poor Balance Gait Function Comments Gait Comments significant FHP, LOB with head turns PT-OP-J Posture/Palpation/Skin Start: 04/22/25 09:04 Freq: Status: Active Protocol: Document 04/22/25 13:59 KW (Rec: 04/22/25 14:29 KW Laptop) Posture Evaluation Position Standing Head/C-Spine Posture Flexed,Forward Head Shoulder Posture (L) Rounded,(R) Rounded Sitting Evaluation View Lateral Head/C-Spine Posture Flexed,Forward Head T-Spine Posture Rotation Left Shoulder Posture (L) Rounded,(R) Rounded Scapula Posture (L) Rotated Down,(R) Rotated Down Pelvis Posture Posterior Tilted Weight Distribution Weight Shifted Right PT-OP-K Range of Motion Start: 04/22/25 09:04 Freq: Status: Active Protocol: Document 04/22/25 13:59 KW (Rec: 04/22/25 14:29 KW Laptop) Lumbar Spine Range of Motion Lumbar Spine Active Testing Position Standing Flexion 70 Comments fingers to top of shoes, forward bend Shoulder Goniometric Range of Motion Shoulder left Shoulder ROM WFL Yes Testing Position Supine right Shoulder ROM WFL No Testing Position Supine Flexion 120 External Rotation at 80 90 degrees Abduction Internal Rotation 90 Hip Goniometric Range of Motion Hip left Hip ROM WFL No Testing Position Supine Flexion w/Knee 90 Flexed Straight Leg Raise 75 Internal Rotation 10 External Rotation 25 right Hip ROM WFL No Testing Position Supine Flexion w/Knee 90 Flexed Straight Leg Raise 75 Internal Rotation 10 External Rotation 25 Knee Goniometric Range of Motion Knee Left Knee ROM WFL No Patient Position Supine Flexion Passive ( 105 degrees) Extension Passive ( 0 degrees) Right Knee ROM WFL No Patient Position Supine Flexion Passive ( 110 degrees) Extension Passive ( 0 degrees) PT-OP-M Strength Start: 04/22/25 09:04 Freq: Status: Active Protocol: Document 04/22/25 13:59 KW (Rec: 04/22/25 14:29 KW Laptop) Shoulder Strength Shoulder Manual Muscle Testing Right Flexion 4 Good Abduction (C5) 4 Good External Rotation 4 Good Internal Rotation 4 Good Left Flexion 4 Good Extension 4 Good Abduction (C5) 4 Good External Rotation 4 Good Internal Rotation 4 Good Hip Strength Hip Manual Muscle Testing Left Flexion (L2) 4- Good- Abduction 4- Good- External Rotation 4- Good- Internal Rotation 4- Good- Right Flexion (L2) 4- Good- Abduction 4- Good- External Rotation 4- Good- Internal Rotation 4- Good- Knee Strength Knee Manual Muscle Testing Left Flexion (S2) 4- Good- Extension (L3) 4- Good- Right Flexion (S2) 4- Good- Extension (L3) 4- Good- PT-OP-Q Treatments Start: 04/22/25 09:04 Freq: Status: Active Protocol: Document 04/29/25 14:02 NBM (Rec: 04/29/25 14:41 NBM Laptop) Cardio Equipment Recumbent Stepper (Sci-Fit) Duration (Minutes) 6 Seat Position seat 6 Therapeutic Exercises Standing Exercises Sit to stand Equipment Used standard mesh chair Reps/Minutes x8 Comments cues for LE alignment Gait Training Gait Activity head turns Description walking with upright posture, recip arm swing and head turns Level of Assistance CGA Surface carpet Distance/Duration 100 ft Treatment Focus arm swing amplitude, postural education Comments cues for head up and arm swings Pt declines both trekking pole or SPC training before and after education provided for benefit of trekking pole with ambulation Neuro Re-Education Treatment Balance Activities foam pad march Details WBOS, NBOS, marching; light touch> no UE support Surface 2 foam Equipment // bars, GB Reps/Duration 30s ea Comments DL balance EO/EC, EO head turns, EC w/ head turns. x1 LOB to L w/EC and head turn to L; pt self-recovers appropriately Visual cues for increased hip flexion with alt march and eccentric control. Self-Care/Home Management Treatment Education Patient Education Body Mechanics,Fall Risk,Home Exercise Program,Posture, Safety Other Education Edu to pt re: posture, improving safety with ambulating with AD such as trekking pole or SPC and how PT can address variables which may have impacted prior negative experience, and how to incorporate STS into daily HEP. PT-OP-T Assessment and Plan Start: 04/22/25 09:04 Freq: Status: Active Protocol: Document 04/29/25 14:02 NBM (Rec: 04/29/25 14:41 NBM Laptop) Physical Therapy Assessment Goals Four Impairment impaired gait Short Term Goal (STG patient ambulates with at least 1 trekking pole to ) improve balance and posture 04/29/25: Pt declines either trekking pole or SPC training before/after edu provided for benefit of trekking pole with ambulation. Three Impairment lack of HEP Short Term Goal (STG pt demonstrates indep with HEP ) STG Duration 6 weeks Two Impairment impaired DASH score 23 % Short Term Goal (STG improve DASH score 50% ) STG Duration 6 weeks One Impairment LEFS score 18% Short Term Goal (STG improved LEFS score 50% ) STG Duration 6 weeks Assessment Summary Assessment Treatment focus on gait and balance. Sarah ambulates with unsteady gait and minimal to no arm swing with hands clasped; she demos improved gait with tactile cues for upright posture and visual cues for arm swing, but declines to trial either trekking pole or SPC before and after education provided for benefit of trekking pole with ambulation. With alternating march she requires visual cues for increased hip flexion and eccentric control and demos improved self-awareness and performance for each but requires increased UE support . Physical Therapy Plan Frequency and Duration Frequency of 2x/Week Treatment Duration of 6 treatment (weeks) Plan of Care Start 04/22/25 Date Plan of Care End 06/22/25 Date Therapeutic Interventions Therapeutic Balance Training,Gait Training,Home Exercise Program, Interventions Joint Mobilizations,Manual Therapy,Neuromuscular Re- education,Orthotic/Prosthetic Management,Patient/ Caregiver Education,Self-Care/Home Management,Soft Tissue Mobilization,Taping,Therapeutic Activities, Therapeutic Exercises Modalities Cold Pack/Ice Massage,Electric Stimulation,Hot Packs, Ultrasound Next Visit Focus/Plan Next Note Type Treatment Note Next Visit Plan Nu raymond // bars for balance gait with head turns and trekking pole trial possibly shuttle
--- NOTE | 2025-05-03 14:08 | PT-OP ANOTE ---
Spoke with pt re: missed PT appointment today and she apologizes and thought it was a 4:00pm appointment as she had one about that time previously. Rescheduled with pt to 05/05 10:45am, and confirmed next visit Friday 05/11 1:45pm.
--- NOTE | 2025-05-04 16:43 | PT-OP ANOTE ---
Front office approaches pt's ANIMAL CRUELTY INVESTIGATOR and this PT also in office. Front office teammate reports that pt arrives presenting with confusion about her appointments and cannot state her age. ANIMAL CRUELTY INVESTIGATOR and PT approach pt who cannot state her . PT asks pt about her day and she states she went to [facility] but cannot state where she went. PT is able to check BP and HR in LUE and they are 156/74, 99. PT encourages pt not to drive and to consider the walk-in clinic or ED d/t confusion and pt becomes agitated stating, No. That's not appropriate. I am driving home. This PT communicates with primary PT and calls PCP, Bridgette Joel. Spoke with nurse. PT also calls family member in chart, Milvia. She is unavailable and PT leaves message.
--- NOTE | 2025-05-05 17:16 | PT.OTN ---
Current Diagnoses Other chronic pain (05/05/25) Pain in right shoulder (05/05/25) Pain in left shoulder (05/05/25) Pain in thoracic spine (05/05/25) Physical Therapy Treatment Note PT-OP-A Visit Information Start: 04/22/25 09:04 Freq: Status: Active Protocol: Document 05/05/25 15:53 NBM (Rec: 05/05/25 17:15 NBM Laptop) Out-Patient Physical Therapy Visit Information Visit Information Visit Type Treatment Note Visit Start Time 10:50 Visit Stop Time 11:40 Visit Number 4 Number of MECHANICAL SUPERVISOR Visits 2 Evaluation Information Evaluation Date 04/22/25 Precautions Precautions none PT-OP-B Current Condition Start: 04/22/25 09:04 Freq: Status: Active Protocol: Document 04/22/25 13:59 KW (Rec: 04/22/25 14:29 KW Laptop) Current Condition History of Current Condition Onset Date chronic Current Complaints B shoulder pain, upper thoracic pain, B hip and knee pain, toe pain 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 She walks 1/2 mile daily in community. Chooses to not use cane, trekking poles or walker. She is still driving. She is very limited in her eating due to a very extensive swallowing issue causes by trauma of a large tube during a medical procedure. Prior Treatments and has not had dexa scan Tests PT-OP-C Subjective Start: 04/22/25 09:04 Freq: Status: Active Protocol: Document 05/05/25 15:53 NBM (Rec: 05/05/25 17:15 NBM Laptop) OP-PT Subjective Patient Comments Patient Comments Sarah reports daughter Milvia is taking her to see PCP this afternoon. She shares that she came to PT clinic yesterday to obtain printout of schedule and was upset she was asked to return to clinic as she is confident in her safe driving, and that she remembered her birthdate as soon as she got back into car. She received a welfare check from officer shortly after getting home yesterday, but did feel better after speaking with him. She brings her balance exercise handout which she's been doing every morning and is sure she's doing correctly. They're fun. PT-OP-D Balance Start: 04/22/25 09:04 Freq: Status: Active Protocol: Document 04/22/25 13:59 KW (Rec: 04/22/25 14:29 KW Laptop) OP-PT Balance Assessment Standing Balance Static Standing Good Balance Ability Dynamic Standing Fair Balance Ability Standing Balance LOB with head turns Comments Lara Fall Scale Copyright Permission PT-OP-E Functional Tests Start: 04/22/25 09:04 Freq: Status: Active Protocol: Document 04/22/25 13:59 KW (Rec: 04/22/25 14:29 KW Laptop) Functional Tests 30 Second Sit to Stand Test Score 5 Comments pain in legs and feet Timed Up and Go (TUG) Score 12 TUG Impairment 20 to <40% Impaired (Score 12-13) Rating PT-OP-F Manual Assessment Start: 04/22/25 09:04 Freq: Status: Active Protocol: Document 04/22/25 13:59 KW (Rec: 04/22/25 14:29 KW Laptop) Manual Assessments Joint Mobility Assessment Joint Mobility stiffness B hips posterior/inferior capsules Assessment stiffness T-spine, kyphosis PT-OP-G Mobility & Gait Start: 04/22/25 09:04 Freq: Status: Active Protocol: Document 04/22/25 13:59 KW (Rec: 04/22/25 14:29 KW Laptop) OP Mobility Evaluation Bed Mobility Rolling cues for log roll, breathing, bending knees Supine to and from cues to keep knees flexed, breathing Sit Transfers Sit to Stand indep with use of hands Functional Movements Squats Indep, pain in hips/knees, thighs OP Gait Assessment Gait Gait Assistance Standby Assistance Required: Distance (Feet) 500 Assistive Devices Assistive Device None Gait Deviations General Gait Pattern Flexed Trunk Factors Limiting Gait Function Factors Limiting Poor Balance Gait Function Comments Gait Comments significant FHP, LOB with head turns PT-OP-J Posture/Palpation/Skin Start: 04/22/25 09:04 Freq: Status: Active Protocol: Document 04/22/25 13:59 KW (Rec: 04/22/25 14:29 KW Laptop) Posture Evaluation Position Standing Head/C-Spine Posture Flexed,Forward Head Shoulder Posture (L) Rounded,(R) Rounded Sitting Evaluation View Lateral Head/C-Spine Posture Flexed,Forward Head T-Spine Posture Rotation Left Shoulder Posture (L) Rounded,(R) Rounded Scapula Posture (L) Rotated Down,(R) Rotated Down Pelvis Posture Posterior Tilted Weight Distribution Weight Shifted Right PT-OP-K Range of Motion Start: 04/22/25 09:04 Freq: Status: Active Protocol: Document 04/22/25 13:59 KW (Rec: 04/22/25 14:29 KW Laptop) Lumbar Spine Range of Motion Lumbar Spine Active Testing Position Standing Flexion 70 Comments fingers to top of shoes, forward bend Shoulder Goniometric Range of Motion Shoulder left Shoulder ROM WFL Yes Testing Position Supine right Shoulder ROM WFL No Testing Position Supine Flexion 120 External Rotation at 80 90 degrees Abduction Internal Rotation 90 Hip Goniometric Range of Motion Hip left Hip ROM WFL No Testing Position Supine Flexion w/Knee 90 Flexed Straight Leg Raise 75 Internal Rotation 10 External Rotation 25 right Hip ROM WFL No Testing Position Supine Flexion w/Knee 90 Flexed Straight Leg Raise 75 Internal Rotation 10 External Rotation 25 Knee Goniometric Range of Motion Knee Left Knee ROM WFL No Patient Position Supine Flexion Passive ( 105 degrees) Extension Passive ( 0 degrees) Right Knee ROM WFL No Patient Position Supine Flexion Passive ( 110 degrees) Extension Passive ( 0 degrees) PT-OP-M Strength Start: 04/22/25 09:04 Freq: Status: Active Protocol: Document 04/22/25 13:59 KW (Rec: 04/22/25 14:29 KW Laptop) Shoulder Strength Shoulder Manual Muscle Testing Right Flexion 4 Good Abduction (C5) 4 Good External Rotation 4 Good Internal Rotation 4 Good Left Flexion 4 Good Extension 4 Good Abduction (C5) 4 Good External Rotation 4 Good Internal Rotation 4 Good Hip Strength Hip Manual Muscle Testing Left Flexion (L2) 4- Good- Abduction 4- Good- External Rotation 4- Good- Internal Rotation 4- Good- Right Flexion (L2) 4- Good- Abduction 4- Good- External Rotation 4- Good- Internal Rotation 4- Good- Knee Strength Knee Manual Muscle Testing Left Flexion (S2) 4- Good- Extension (L3) 4- Good- Right Flexion (S2) 4- Good- Extension (L3) 4- Good- PT-OP-Q Treatments Start: 04/22/25 09:04 Freq: Status: Active Protocol: Document 05/05/25 15:53 NBM (Rec: 05/05/25 17:15 NBM Laptop) Cardio Equipment Recumbent Stepper (Sci-Fit) Duration (Minutes) 6 Seat Position seat [address]; End of session: BP 150/74, 75 bpm SPO2 99% Manual Therapy Treatment Consent Patient gave verbal Yes consent for manual treatment Soft Tissue Mobilization thoracic Body Location Proximal L QL and paraspinals L>R, B rhomboids Mobilization Type Cross-Friction,Rolling Intensity/Depth superficial, moderate Body Position Sitting Comments Palpable tension to L QL improves. Pt reports decreased pain following. Neuro Re-Education Treatment Balance Activities HEP review Details 2 COAL WHEELER>1 COAL WHEELER> No hands as tolerated Surface firm Equipment handrail Reps/Duration x5 ea Comments 1. Toe raise B - corrected from Heel raise 2. Step out and back B - cues to also step to R 3. Hip ext B 4. SL balance B - 2 COAL WHEELER>1 COAL WHEELER> No hands 5. Tandem balance B - 2 COAL WHEELER>1 COAL WHEELER pt asks about braiding stance and is i/s to avoid at this time. PT-OP-T Assessment and Plan Start: 04/22/25 09:04 Freq: Status: Active Protocol: Document 05/05/25 15:53 NBM (Rec: 05/05/25 17:15 NBM Laptop) Physical Therapy Assessment Goals Four Impairment impaired gait Short Term Goal (STG patient ambulates with at least 1 trekking pole to ) improve balance and posture 04/29/25: Pt declines either trekking pole or SPC training before/after edu provided for benefit of trekking pole with ambulation. Three Impairment lack of HEP Short Term Goal (STG pt demonstrates indep with HEP ) STG Duration 6 weeks Two Impairment impaired DASH score 23 % Short Term Goal (STG improve DASH score 50% ) STG Duration 6 weeks One Impairment LEFS score 18% Short Term Goal (STG improved LEFS score 50% ) STG Duration 6 weeks Assessment Summary Assessment Sarah recalls date of without prompting start of session, and significant time in discussion w/ pt re : memory loss and confusion, w/ pt clarifying she knew she did not have a PT appointment yesterday and was simply getting her appointment schedule. This MECHANICAL SUPERVISOR affirms to pt the concern stemmed from repeated confusion with multiple appointment dates/times to date as well as inability for pt to report date of or age yesterday, and pt expresses understanding, repeats correctly, and states daughter Milvia is taking her to see PCP this afternoon. Treatment focus on HEP balance review and STM to L Quadratus lumborum m., and pt handout is updated with cues for correct performance as needed. With cueing she is able to progress SL balance bilaterally from two hands to one hand and then no upper extremity support.
--- NOTE | 2025-05-11 16:43 | PT.OTN ---
Current Diagnoses Other chronic pain (05/11/25) Pain in right shoulder (05/11/25) Pain in left shoulder (05/11/25) Pain in thoracic spine (05/11/25) Physical Therapy Treatment Note PT-OP-A Visit Information Start: 04/22/25 09:04 Freq: Status: Active Protocol: Document 05/11/25 13:30 NBM (Rec: 05/11/25 16:43 NBM Laptop) Out-Patient Physical Therapy Visit Information Visit Information Visit Type Treatment Note Visit Note VS: after w/u BP 128/68, 87 bpm SPO2 100% Pt arrives at 1:00pm for 1:45pm appointment. This POTTERY MACHINE OPERATOR adds check in time 10 min prior to pt's printed schedule for next two appointments. 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 She walks 1/2 mile daily in community. Chooses to not use cane, trekking poles or walker. She is still driving. She is very limited in her eating due to a very extensive swallowing issue causes by trauma of a large tube during a medical procedure. Prior Treatments and has not had dexa scan Tests PT-OP-C Subjective Start: 04/22/25 09:04 Freq: Status: Active Protocol: Document 05/11/25 13:30 NBM (Rec: 05/11/25 16:43 NBM Laptop) OP-PT Subjective Patient Comments Patient Comments Sarah reports she awoke with swelling in both legs which is unusual because it usually gets better over night and then worsens during the day; she didn't due her home exercises this morning in case that's contributing to her swelling. She and daughter saw her PCP last week and they scar blood and are waiting for results for next steps, and daughter Milvia is working on getting her compression socks. Her mid-back pain has been much better since last visit. PT-OP-D Balance Start: 04/22/25 09:04 Freq: Status: Active Protocol: Document 04/22/25 13:59 KW (Rec: 04/22/25 14:29 KW Laptop) OP-PT Balance Assessment Standing Balance Static Standing Good Balance Ability Dynamic Standing Fair Balance Ability Standing Balance LOB with head turns Comments Lara Fall Scale Copyright Permission PT-OP-E Functional Tests Start: 04/22/25 09:04 Freq: Status: Active Protocol: Document 04/22/25 13:59 KW (Rec: 04/22/25 14:29 KW Laptop) Functional Tests 30 Second Sit to Stand Test Score 5 Comments pain in legs and feet Timed Up and Go (TUG) Score 12 TUG Impairment 20 to <40% Impaired (Score 12-13) Rating PT-OP-F Manual Assessment Start: 04/22/25 09:04 Freq: Status: Active Protocol: Document 04/22/25 13:59 KW (Rec: 04/22/25 14:29 KW Laptop) Manual Assessments Joint Mobility Assessment Joint Mobility stiffness B hips posterior/inferior capsules Assessment stiffness T-spine, kyphosis PT-OP-G Mobility & Gait Start: 04/22/25 09:04 Freq: Status: Active Protocol: Document 04/22/25 13:59 KW (Rec: 04/22/25 14:29 KW Laptop) OP Mobility Evaluation Bed Mobility Rolling cues for log roll, breathing, bending knees Supine to and from cues to keep knees flexed, breathing Sit Transfers Sit to Stand indep with use of hands Functional Movements Squats Indep, pain in hips/knees, thighs OP Gait Assessment Gait Gait Assistance Standby Assistance Required: Distance (Feet) 500 Assistive Devices Assistive Device None Gait Deviations General Gait Pattern Flexed Trunk Factors Limiting Gait Function Factors Limiting Poor Balance Gait Function Comments Gait Comments significant FHP, LOB with head turns PT-OP-J Posture/Palpation/Skin Start: 04/22/25 09:04 Freq: Status: Active Protocol: Document 04/22/25 13:59 KW (Rec: 04/22/25 14:29 KW Laptop) Posture Evaluation Position Standing Head/C-Spine Posture Flexed,Forward Head Shoulder Posture (L) Rounded,(R) Rounded Sitting Evaluation View Lateral Head/C-Spine Posture Flexed,Forward Head T-Spine Posture Rotation Left Shoulder Posture (L) Rounded,(R) Rounded Scapula Posture (L) Rotated Down,(R) Rotated Down Pelvis Posture Posterior Tilted Weight Distribution Weight Shifted Right PT-OP-K Range of Motion Start: 04/22/25 09:04 Freq: Status: Active Protocol: Document 04/22/25 13:59 KW (Rec: 04/22/25 14:29 KW Laptop) Lumbar Spine Range of Motion Lumbar Spine Active Testing Position Standing Flexion 70 Comments fingers to top of shoes, forward bend Shoulder Goniometric Range of Motion Shoulder left Shoulder ROM WFL Yes Testing Position Supine right Shoulder ROM WFL No Testing Position Supine Flexion 120 External Rotation at 80 90 degrees Abduction Internal Rotation 90 Hip Goniometric Range of Motion Hip left Hip ROM WFL No Testing Position Supine Flexion w/Knee 90 Flexed Straight Leg Raise 75 Internal Rotation 10 External Rotation 25 right Hip ROM WFL No Testing Position Supine Flexion w/Knee 90 Flexed Straight Leg Raise 75 Internal Rotation 10 External Rotation 25 Knee Goniometric Range of Motion Knee Left Knee ROM WFL No Patient Position Supine Flexion Passive ( 105 degrees) Extension Passive ( 0 degrees) Right Knee ROM WFL No Patient Position Supine Flexion Passive ( 110 degrees) Extension Passive ( 0 degrees) PT-OP-M Strength Start: 04/22/25 09:04 Freq: Status: Active Protocol: Document 04/22/25 13:59 KW (Rec: 04/22/25 14:29 KW Laptop) Shoulder Strength Shoulder Manual Muscle Testing Right Flexion 4 Good Abduction (C5) 4 Good External Rotation 4 Good Internal Rotation 4 Good Left Flexion 4 Good Extension 4 Good Abduction (C5) 4 Good External Rotation 4 Good Internal Rotation 4 Good Hip Strength Hip Manual Muscle Testing Left Flexion (L2) 4- Good- Abduction 4- Good- External Rotation 4- Good- Internal Rotation 4- Good- Right Flexion (L2) 4- Good- Abduction 4- Good- External Rotation 4- Good- Internal Rotation 4- Good- Knee Strength Knee Manual Muscle Testing Left Flexion (S2) 4- Good- Extension (L3) 4- Good- Right Flexion (S2) 4- Good- Extension (L3) 4- Good- PT-OP-Q Treatments Start: 04/22/25 09:04 Freq: Status: Active Protocol: Document 05/11/25 13:30 NBM (Rec: 05/11/25 16:43 NBM Laptop) Cardio Equipment Recumbent Stepper (Sci-Fit) Duration (Minutes) 3 Seat Position seat 7 Other dc'd d/t pt c/o fatigue; after w/u BP 128/68, 87 bpm SPO2 100% Gym Equipment Shuttle Balance Blue clips Details WBOS, NBOS Reps/Duration 30s ea Comments stilling platform, maintaining balance: -EO/EC -Head turns/nods Manual Therapy Treatment Consent Patient gave verbal Yes consent for manual treatment Soft Tissue Mobilization Lower extremities Body Location B light edema massage: leg, lower leg, ankles Mobilization Type Other Intensity/Depth Superficial Body Position Hooklying Comments LEs supported on bolster. swelling R>L, both observably improve; positive feedback response. Pt i/s in light edema massage proximal to distal. thoracic Body Location offered and declined Other Other Manual Pt has bandaid donned over R hallux which she reports Treatments improves great toe pain. Only this toe nail is noted to be longer, and she admits this toe is harder for her to cut nail on. Edu to consider having daughter Milvia help with cutting toe nail when she arrives tomorrow. PT-OP-T Assessment and Plan Start: 04/22/25 09:04 Freq: Status: Active Protocol: Document 05/11/25 13:30 NBM (Rec: 05/11/25 16:43 NBM Laptop) Physical Therapy Assessment Goals Four Impairment impaired gait Short Term Goal (STG patient ambulates with at least 1 trekking pole to ) improve balance and posture 04/29/25: Pt declines either trekking pole or SPC training before/after edu provided for benefit of trekking pole with ambulation. Three Impairment lack of HEP Short Term Goal (STG pt demonstrates indep with HEP ) STG Duration 6 weeks Two Impairment impaired DASH score 23 % Short Term Goal (STG improve DASH score 50% ) STG Duration 6 weeks One Impairment LEFS score 18% Short Term Goal (STG improved LEFS score 50% ) STG Duration 6 weeks Assessment Summary Assessment Sarah fatigues quickly today on recumbant stepper which is discontinued at 3m due to her complaint of fatigue starting at 1m 30s. VS after w/u BP 128/68, 87 bpm SPO2 100%. Treatment focus on balance and light edema massage to bilateral lower extremities; swelling observably improves and pt has positive feedback response and is instructed in self-edema massage proximally to distally. Shuttle balance on blue clips is trialed today and pt is able to maintain balance without UE support in WBOS and NBOS with eyes opened and eyes closed, and with head turns and nods 30s each; she requires initial cues for upright posture and distant focal point. Physical Therapy Plan Frequency and Duration Frequency of 2x/Week Treatment Duration of 6 treatment (weeks) Plan of Care Start 04/22/25 Date Plan of Care End 06/22/25 Date Therapeutic Interventions Therapeutic Balance Training,Gait Training,Home Exercise Program, Interventions Joint Mobilizations,Manual Therapy,Neuromuscular Re- education,Orthotic/Prosthetic Management,Patient/ Caregiver Education,Self-Care/Home Management,Soft Tissue Mobilization,Taping,Therapeutic Activities, Therapeutic Exercises Modalities Cold Pack/Ice Massage,Electric Stimulation,Hot Packs, Ultrasound Next Visit Focus/Plan Next Note Type Treatment Note Next Visit Plan Next: Light edema massage to LEs as needed. Consider Shuttle Balance red clips. POC: Nu raymond // bars for balance gait with head turns and trekking pole trial possibly shuttle
--- NOTE | 2025-05-19 15:19 | PT.OTN ---
Current Diagnoses Other chronic pain (05/19/25) Pain in right shoulder (05/19/25) Pain in left shoulder (05/19/25) Pain in thoracic spine (05/19/25) Physical Therapy Treatment Note PT-OP-A Visit Information Start: 04/22/25 09:04 Freq: Status: Active Protocol: Document 05/19/25 14:35 KW (Rec: 05/19/25 15:19 KW Laptop) Out-Patient Physical Therapy Visit Information Visit Information Visit Type Progress Note Visit Note 139/71 post walk 02 97% HR 80 Visit Start Time 14:30 Visit Stop Time 15:15 Visit Number 6 Evaluation Information Evaluation Date 04/22/25 Precautions Precautions none PT-OP-B Current Condition Start: 04/22/25 09:04 Freq: Status: Active Protocol: Document 05/19/25 14:35 KW (Rec: 05/19/25 15:19 KW Laptop) Current Condition History of Current Condition Onset Date chronic Current Complaints B shoulder pain, upper thoracic pain, B hip and knee pain, toe pain 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 She walks 1/2 mile daily in community. Chooses to not use cane, trekking poles or walker. She is still driving. She is very limited in her eating due to a very extensive swallowing issue causes by trauma of a large tube during a medical procedure. Prior Treatments and has not had dexa scan Tests PT-OP-C Subjective Start: 04/22/25 09:04 Freq: Status: Active Protocol: Document 05/19/25 14:35 KW (Rec: 05/19/25 15:19 KW Laptop) OP-PT Subjective Patient Comments Patient Comments now has B LE compression socks with zipper openings which she finds comfortable and easy to get on/off PT-OP-D Balance Start: 04/22/25 09:04 Freq: Status: Active Protocol: Document 05/19/25 14:35 KW (Rec: 05/19/25 15:19 KW Laptop) OP-PT Balance Assessment Standing Balance Static Standing Good Balance Ability Dynamic Standing Normal Balance Ability Standing Balance LOB with head turns Comments Lara Fall Scale Copyright Permission PT-OP-E Functional Tests Start: 04/22/25 09:04 Freq: Status: Active Protocol: Document 04/22/25 13:59 KW (Rec: 04/22/25 14:29 KW Laptop) Functional Tests 30 Second Sit to Stand Test Score 5 Comments pain in legs and feet Timed Up and Go (TUG) Score 12 TUG Impairment 20 to <40% Impaired (Score 12-13) Rating PT-OP-F Manual Assessment Start: 04/22/25 09:04 Freq: Status: Active Protocol: Document 04/22/25 13:59 KW (Rec: 04/22/25 14:29 KW Laptop) Manual Assessments Joint Mobility Assessment Joint Mobility stiffness B hips posterior/inferior capsules Assessment stiffness T-spine, kyphosis PT-OP-G Mobility & Gait Start: 04/22/25 09:04 Freq: Status: Active Protocol: Document 04/22/25 13:59 KW (Rec: 04/22/25 14:29 KW Laptop) OP Mobility Evaluation Bed Mobility Rolling cues for log roll, breathing, bending knees Supine to and from cues to keep knees flexed, breathing Sit Transfers Sit to Stand indep with use of hands Functional Movements Squats Indep, pain in hips/knees, thighs OP Gait Assessment Gait Gait Assistance Standby Assistance Required: Distance (Feet) 500 Assistive Devices Assistive Device None Gait Deviations General Gait Pattern Flexed Trunk Factors Limiting Gait Function Factors Limiting Poor Balance Gait Function Comments Gait Comments significant FHP, LOB with head turns PT-OP-J Posture/Palpation/Skin Start: 04/22/25 09:04 Freq: Status: Active Protocol: Document 04/22/25 13:59 KW (Rec: 04/22/25 14:29 KW Laptop) Posture Evaluation Position Standing Head/C-Spine Posture Flexed,Forward Head Shoulder Posture (L) Rounded,(R) Rounded Sitting Evaluation View Lateral Head/C-Spine Posture Flexed,Forward Head T-Spine Posture Rotation Left Shoulder Posture (L) Rounded,(R) Rounded Scapula Posture (L) Rotated Down,(R) Rotated Down Pelvis Posture Posterior Tilted Weight Distribution Weight Shifted Right PT-OP-K Range of Motion Start: 04/22/25 09:04 Freq: Status: Active Protocol: Document 04/22/25 13:59 KW (Rec: 04/22/25 14:29 KW Laptop) Lumbar Spine Range of Motion Lumbar Spine Active Testing Position Standing Flexion 70 Comments fingers to top of shoes, forward bend Shoulder Goniometric Range of Motion Shoulder left Shoulder ROM WFL Yes Testing Position Supine right Shoulder ROM WFL No Testing Position Supine Flexion 120 External Rotation at 80 90 degrees Abduction Internal Rotation 90 Hip Goniometric Range of Motion Hip left Hip ROM WFL No Testing Position Supine Flexion w/Knee 90 Flexed Straight Leg Raise 75 Internal Rotation 10 External Rotation 25 right Hip ROM WFL No Testing Position Supine Flexion w/Knee 90 Flexed Straight Leg Raise 75 Internal Rotation 10 External Rotation 25 Knee Goniometric Range of Motion Knee Left Knee ROM WFL No Patient Position Supine Flexion Passive ( 105 degrees) Extension Passive ( 0 degrees) Right Knee ROM WFL No Patient Position Supine Flexion Passive ( 110 degrees) Extension Passive ( 0 degrees) PT-OP-M Strength Start: 04/22/25 09:04 Freq: Status: Active Protocol: Document 04/22/25 13:59 KW (Rec: 04/22/25 14:29 KW Laptop) Shoulder Strength Shoulder Manual Muscle Testing Right Flexion 4 Good Abduction (C5) 4 Good External Rotation 4 Good Internal Rotation 4 Good Left Flexion 4 Good Extension 4 Good Abduction (C5) 4 Good External Rotation 4 Good Internal Rotation 4 Good Hip Strength Hip Manual Muscle Testing Left Flexion (L2) 4- Good- Abduction 4- Good- External Rotation 4- Good- Internal Rotation 4- Good- Right Flexion (L2) 4- Good- Abduction 4- Good- External Rotation 4- Good- Internal Rotation 4- Good- Knee Strength Knee Manual Muscle Testing Left Flexion (S2) 4- Good- Extension (L3) 4- Good- Right Flexion (S2) 4- Good- Extension (L3) 4- Good- PT-OP-Q Treatments Start: 04/22/25 09:04 Freq: Status: Active Protocol: Document 05/19/25 14:35 KW (Rec: 05/19/25 15:19 KW Laptop) Cardio Equipment Recumbent Stepper (Sci-Fit) Duration (Minutes) 4 Seat Position seat 7 Gym Equipment Shuttle Rebound red clip Exercise Details tandem and narrow DORIS, wt shifting Comments working on balance reactions Shuttle Balance Blue clips Details WBOS, NBOS Reps/Duration 30s ea Comments stilling platform, maintaining balance: -EO/EC -Head turns/nods Therapeutic Exercises Standing Exercises Sit to stand Equipment Used standard mesh chair Reps/Minutes x8 Comments cues for LE alignment Hip swings Standing Exercise hip swings, squats with good alignment, heel raises Name Reps/Minutes 10 each gastroc stretch Standing Exercise using wall and JOSE wedge Name Side bilateral Reps/Minutes 3 x 30 sec Gait Training Gait Activity head turns Description walking with upright posture, recip arm swing and head turns Level of Assistance CGA Surface carpet Distance/Duration 100 ft Treatment Focus arm swing amplitude, postural education Comments cues for head up and arm swings Pt declines both trekking pole or SPC training before and after education provided for benefit of trekking pole with ambulation Neuro Re-Education Treatment Balance Activities HEP review Details 2 NURSING TEACHER>1 NURSING TEACHER> No hands as tolerated Surface firm Equipment handrail Reps/Duration x5 ea Comments 1. Toe raise B - corrected from Heel raise 2. Step out and back B - cues to also step to R 3. Hip ext B 4. SL balance B - 2 NURSING TEACHER>1 NURSING TEACHER> No hands 5. Tandem balance B - 2 NURSING TEACHER>1 NURSING TEACHER pt asks about braiding stance and is i/s to avoid at this time. Self-Care/Home Management Treatment Education Patient Education Body Mechanics,Fall Risk,Home Exercise Program,Posture, Safety PT-OP-T Assessment and Plan Start: 04/22/25 09:04 Freq: Status: Active Protocol: Document 05/19/25 14:35 KW (Rec: 05/19/25 15:19 KW Laptop) Physical Therapy Assessment Rehab Potential Rehabilitation Good Potential Impairments Impairments Activity Tolerance,Balance,Edema,Functional Activities, Gait,Pain,Posture,ROM,Strength Other Concerns Fall Risk yes Goals Four Impairment impaired gait Short Term Goal (STG patient ambulates with at least 1 trekking pole to ) improve balance and posture 04/29/25: Pt declines either trekking pole or SPC training before/after edu provided for benefit of trekking pole with ambulation. Three Impairment lack of HEP Short Term Goal (STG pt demonstrates indep with HEP - 50% ) STG Duration 6 weeks Two Impairment impaired DASH score 23 % Short Term Goal (STG improve DASH score 50% - MET ) STG Duration 6 weeks One Impairment LEFS score 18% Short Term Goal (STG improved LEFS score 50% ) STG Duration 6 weeks Assessment Summary Assessment quickly fatigued on stepper, willing to go for a walk. Enjoys working on balance. She has demonstrated compliance with PT visits and HEP. WIll benefit from cont PT sessions to reduce risk of falls Physical Therapy Plan Frequency and Duration Frequency of 2x/Week Treatment Duration of 6 treatment (weeks) Plan of Care Start 04/22/25 Date Plan of Care End 06/22/25 Date Therapeutic Interventions Therapeutic Balance Training,Gait Training,Home Exercise Program, Interventions Joint Mobilizations,Manual Therapy,Neuromuscular Re- education,Orthotic/Prosthetic Management,Patient/ Caregiver Education,Self-Care/Home Management,Soft Tissue Mobilization,Taping,Therapeutic Activities, Therapeutic Exercises Modalities Cold Pack/Ice Massage,Electric Stimulation,Hot Packs, Ultrasound Next Visit Focus/Plan Next Note Type Treatment Note Next Visit Plan POC: Nu raymond // bars for balance gait with head turns and trekking pole trial possibly shuttle
--- NOTE | 2025-05-23 14:30 | PT.OTN ---
Current Diagnoses Other chronic pain (05/23/25) Pain in right shoulder (05/23/25) Pain in left shoulder (05/23/25) Pain in thoracic spine (05/23/25) Physical Therapy Treatment Note PT-OP-A Visit Information Start: 04/22/25 09:04 Freq: Status: Active Protocol: Document 05/23/25 13:43 SP (Rec: 05/23/25 14:33 SP [id number]) Out-Patient Physical Therapy Visit Information Visit Information Visit Type Treatment Note Visit Note Did not assess vitals today 05/23/25 Visit Start Time 13:43 Visit Stop Time 14:30 Visit Number [address] DESIGN ENGINEER Visits 1 Evaluation Information Evaluation Date 04/22/25 Precautions Precautions none PT-OP-B Current Condition Start: 04/22/25 09:04 Freq: Status: Active Protocol: Document 05/19/25 14:35 KW (Rec: 05/19/25 15:19 KW Laptop) Current Condition History of Current Condition Onset Date chronic Current Complaints B shoulder pain, upper thoracic pain, B hip and knee pain, toe pain 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 She walks 1/2 mile daily in community. Chooses to not use cane, trekking poles or walker. She is still driving. She is very limited in her eating due to a very extensive swallowing issue causes by trauma of a large tube during a medical procedure. Prior Treatments and has not had dexa scan Tests PT-OP-C Subjective Start: 04/22/25 09:04 Freq: Status: Active Protocol: Document 05/23/25 13:43 SP (Rec: 05/23/25 14:33 SP [id number]) OP-PT Subjective Patient Comments Patient Comments Pt reports felt ok after last tx. She reports wears compression stockings (with zippers), bilateral with open toes to support swelling control and help feet walking comfort. PT-OP-D Balance Start: 04/22/25 09:04 Freq: Status: Active Protocol: Document 05/19/25 14:35 KW (Rec: 05/19/25 15:19 KW Laptop) OP-PT Balance Assessment Standing Balance Static Standing Good Balance Ability Dynamic Standing Normal Balance Ability Standing Balance LOB with head turns Comments Lara Fall Scale Copyright Permission PT-OP-E Functional Tests Start: 04/22/25 09:04 Freq: Status: Active Protocol: Document 04/22/25 13:59 KW (Rec: 04/22/25 14:29 KW Laptop) Functional Tests 30 Second Sit to Stand Test Score 5 Comments pain in legs and feet Timed Up and Go (TUG) Score 12 TUG Impairment 20 to <40% Impaired (Score 12-13) Rating PT-OP-F Manual Assessment Start: 04/22/25 09:04 Freq: Status: Active Protocol: Document 04/22/25 13:59 KW (Rec: 04/22/25 14:29 KW Laptop) Manual Assessments Joint Mobility Assessment Joint Mobility stiffness B hips posterior/inferior capsules Assessment stiffness T-spine, kyphosis PT-OP-G Mobility & Gait Start: 04/22/25 09:04 Freq: Status: Active Protocol: Document 04/22/25 13:59 KW (Rec: 04/22/25 14:29 KW Laptop) OP Mobility Evaluation Bed Mobility Rolling cues for log roll, breathing, bending knees Supine to and from cues to keep knees flexed, breathing Sit Transfers Sit to Stand indep with use of hands Functional Movements Squats Indep, pain in hips/knees, thighs OP Gait Assessment Gait Gait Assistance Standby Assistance Required: Distance (Feet) 500 Assistive Devices Assistive Device None Gait Deviations General Gait Pattern Flexed Trunk Factors Limiting Gait Function Factors Limiting Poor Balance Gait Function Comments Gait Comments significant FHP, LOB with head turns PT-OP-J Posture/Palpation/Skin Start: 04/22/25 09:04 Freq: Status: Active Protocol: Document 04/22/25 13:59 KW (Rec: 04/22/25 14:29 KW Laptop) Posture Evaluation Position Standing Head/C-Spine Posture Flexed,Forward Head Shoulder Posture (L) Rounded,(R) Rounded Sitting Evaluation View Lateral Head/C-Spine Posture Flexed,Forward Head T-Spine Posture Rotation Left Shoulder Posture (L) Rounded,(R) Rounded Scapula Posture (L) Rotated Down,(R) Rotated Down Pelvis Posture Posterior Tilted Weight Distribution Weight Shifted Right PT-OP-K Range of Motion Start: 04/22/25 09:04 Freq: Status: Active Protocol: Document 04/22/25 13:59 KW (Rec: 04/22/25 14:29 KW Laptop) Lumbar Spine Range of Motion Lumbar Spine Active Testing Position Standing Flexion 70 Comments fingers to top of shoes, forward bend Shoulder Goniometric Range of Motion Shoulder left Shoulder ROM WFL Yes Testing Position Supine right Shoulder ROM WFL No Testing Position Supine Flexion 120 External Rotation at 80 90 degrees Abduction Internal Rotation 90 Hip Goniometric Range of Motion Hip left Hip ROM WFL No Testing Position Supine Flexion w/Knee 90 Flexed Straight Leg Raise 75 Internal Rotation 10 External Rotation 25 right Hip ROM WFL No Testing Position Supine Flexion w/Knee 90 Flexed Straight Leg Raise 75 Internal Rotation 10 External Rotation 25 Knee Goniometric Range of Motion Knee Left Knee ROM WFL No Patient Position Supine Flexion Passive ( 105 degrees) Extension Passive ( 0 degrees) Right Knee ROM WFL No Patient Position Supine Flexion Passive ( 110 degrees) Extension Passive ( 0 degrees) PT-OP-M Strength Start: 04/22/25 09:04 Freq: Status: Active Protocol: Document 04/22/25 13:59 KW (Rec: 04/22/25 14:29 KW Laptop) Shoulder Strength Shoulder Manual Muscle Testing Right Flexion 4 Good Abduction (C5) 4 Good External Rotation 4 Good Internal Rotation 4 Good Left Flexion 4 Good Extension 4 Good Abduction (C5) 4 Good External Rotation 4 Good Internal Rotation 4 Good Hip Strength Hip Manual Muscle Testing Left Flexion (L2) 4- Good- Abduction 4- Good- External Rotation 4- Good- Internal Rotation 4- Good- Right Flexion (L2) 4- Good- Abduction 4- Good- External Rotation 4- Good- Internal Rotation 4- Good- Knee Strength Knee Manual Muscle Testing Left Flexion (S2) 4- Good- Extension (L3) 4- Good- Right Flexion (S2) 4- Good- Extension (L3) 4- Good- PT-OP-Q Treatments Start: 04/22/25 09:04 Freq: Status: Active Protocol: Document 05/23/25 13:43 SP (Rec: 05/23/25 14:33 SP [id number]) Cardio Equipment Recumbent Elliptical (Biodex) Duration (Minutes) 5 Resistance 3 Seat Position see 4 Other NuStep- BUEs & BLEs 46 SPM, 0.14 miles Therapeutic Exercises Standing Exercises Heel Raises, Toe Raises Standing Exercise 1. HR 2. DF toe raises Name Side bilateral Equipment Used //bar support Reps/Minutes 10 reps each Comments cued for proper form, not wt shift buttocks back during DF/TR- improved Sit to stand Equipment Used standard mesh chair, cross arms over chest Reps/Minutes x8 Comments cues for LE alignment, scoot fwd, feet underneath, hip hinge asc/desc gastroc stretch Standing Exercise using wall and JOSE wedge Name Side bilateral Equipment Used //bars BUE support Reps/Minutes 3 x 30 sec Comments reports good gastroc stretch R>L Gait Training Gait Activity head turns Description walking with upright posture: fwd recip arm swing /c head turns, back walk Level of Assistance CGA Surface hallway tile Distance/Duration 50 ft fwd 1 lap, 20 ft backward 1 laps Treatment Focus arm swing amplitude, postural education Comments cues for head up, tall posture and arm swings -trunk vier L during HT L x1 then better self correction midline stability Pt continues declines both trekking pole or SPC training before and after education provided for benefit of trekking pole with ambulation Neuro Re-Education Treatment Balance Activities foam pad march Details WBOS, Stride Stance (2 apart), no marching 05/23/25 Surface 2 foam Equipment // bars, GB Comments EO w/ head turns, EC R ft fwd 11 sec L fwd 28 sec before LOB. - minimal sways but contact rail PRN. Next add leg wt to marching on foam and maybe add cone taps. stepping over hurdles Details fwd reciprocal, lateral step to Equipment 5 hurdles with foam between Reps/Duration //bars 2 laps Comments cued head up, heel clearance, elongated posture. PT-OP-T Assessment and Plan Start: 04/22/25 09:04 Freq: Status: Active Protocol: Document 05/23/25 13:43 SP (Rec: 05/23/25 14:33 SP [id number]) Physical Therapy Assessment Goals Four Impairment impaired gait Short Term Goal (STG patient ambulates with at least 1 trekking pole to ) improve balance and posture 04/29/25: Pt declines either trekking pole or SPC training before/after edu provided for benefit of trekking pole with ambulation. Three Impairment lack of HEP Short Term Goal (STG pt demonstrates indep with HEP - 50% ) STG Duration 6 weeks Two Impairment impaired DASH score 23 % Short Term Goal (STG improve DASH score 50% - MET ) STG Duration 6 weeks One Impairment LEFS score 18% Short Term Goal (STG improved LEFS score 50% ) STG Duration 6 weeks Assessment Summary Assessment Pt cues for elongated posture with fwd wt shift over forefoot during balancing activities lessened UE support. Improved stabilti with HTs in hallway with cues for midline posture and increase DORIS. Pt improved no UE support during STS with cues for slow eccentric sit. Pt could benefit from resisted UE ext for core and postural support, trial next tx. Physical Therapy Plan Frequency and Duration Frequency of 2x/Week Treatment Duration of 6 treatment (weeks) Plan of Care Start 04/22/25 Date Plan of Care End 06/22/25 Date Therapeutic Interventions Therapeutic Balance Training,Gait Training,Home Exercise Program, Interventions Joint Mobilizations,Manual Therapy,Neuromuscular Re- education,Orthotic/Prosthetic Management,Patient/ Caregiver Education,Self-Care/Home Management,Soft Tissue Mobilization,Taping,Therapeutic Activities, Therapeutic Exercises Modalities Cold Pack/Ice Massage,Electric Stimulation,Hot Packs, Ultrasound Next Visit Focus/Plan Next Note Type Treatment Note Next Visit Plan Next trial standing resisted shld ext for core/bal/ posture, facing wall slides scaption progression and SLS cone taps to encourage posture corrections more tall forward COG. POC: Nustep warm up // bars for balance gait with head turns and trekking pole trial possibly shuttle
--- NOTE | 2025-06-01 15:16 | PT.OTN ---
Current Diagnoses Other chronic pain (06/01/25) Pain in right shoulder (06/01/25) Pain in left shoulder (06/01/25) Pain in thoracic spine (06/01/25) Physical Therapy Treatment Note PT-OP-A Visit Information Start: 04/22/25 09:04 Freq: Status: Active Protocol: Document 06/01/25 14:28 SP (Rec: 06/01/25 14:39 SP [id number]) Out-Patient Physical Therapy Visit Information Visit Information Visit Type Treatment Note Visit Note Did not assess vitals today 05/23/25 *Pt able make needs know, at times has challenge word finding* Visit Start Time 14:28 Visit Stop Time 15:16 Visit Number 8 Number of PHYSICIAN ASSISTANT CERTIFIED Visits 2 Evaluation Information Evaluation Date 04/22/25 Precautions Precautions none PT-OP-B Current Condition Start: 04/22/25 09:04 Freq: Status: Active Protocol: Document 05/19/25 14:35 KW (Rec: 05/19/25 15:19 KW Laptop) Current Condition History of Current Condition Onset Date chronic Current Complaints B shoulder pain, upper thoracic pain, B hip and knee pain, toe pain 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 She walks 1/2 mile daily in community. Chooses to not use cane, trekking poles or walker. She is still driving. She is very limited in her eating due to a very extensive swallowing issue causes by trauma of a large tube during a medical procedure. Prior Treatments and has not had dexa scan Tests PT-OP-C Subjective Start: 04/22/25 09:04 Freq: Status: Active Protocol: Document 06/01/25 14:28 SP (Rec: 06/01/25 14:39 SP [id number]) OP-PT Subjective Patient Comments Patient Comments Pt c/o L posterlateral ribcage and R anterior hip/groin pain at arrival, wants to help improve. She uses Aspercream with lidocaine for assist pain control. She states was supposed to go out of town see family but thinks might be to much of a ride with her pain having . She reports hurdles hurt the inside of her R groin after last tx. PT-OP-D Balance Start: 04/22/25 09:04 Freq: Status: Active Protocol: Document 05/19/25 14:35 KW (Rec: 05/19/25 15:19 KW Laptop) OP-PT Balance Assessment Standing Balance Static Standing Good Balance Ability Dynamic Standing Normal Balance Ability Standing Balance LOB with head turns Comments Lara Fall Scale Copyright Permission PT-OP-E Functional Tests Start: 04/22/25 09:04 Freq: Status: Active Protocol: Document 04/22/25 13:59 KW (Rec: 04/22/25 14:29 KW Laptop) Functional Tests 30 Second Sit to Stand Test Score 5 Comments pain in legs and feet Timed Up and Go (TUG) Score 12 TUG Impairment 20 to <40% Impaired (Score 12-13) Rating PT-OP-F Manual Assessment Start: 04/22/25 09:04 Freq: Status: Active Protocol: Document 04/22/25 13:59 KW (Rec: 04/22/25 14:29 KW Laptop) Manual Assessments Joint Mobility Assessment Joint Mobility stiffness B hips posterior/inferior capsules Assessment stiffness T-spine, kyphosis PT-OP-G Mobility & Gait Start: 04/22/25 09:04 Freq: Status: Active Protocol: Document 04/22/25 13:59 KW (Rec: 04/22/25 14:29 KW Laptop) OP Mobility Evaluation Bed Mobility Rolling cues for log roll, breathing, bending knees Supine to and from cues to keep knees flexed, breathing Sit Transfers Sit to Stand indep with use of hands Functional Movements Squats Indep, pain in hips/knees, thighs OP Gait Assessment Gait Gait Assistance Standby Assistance Required: Distance (Feet) 500 Assistive Devices Assistive Device None Gait Deviations General Gait Pattern Flexed Trunk Factors Limiting Gait Function Factors Limiting Poor Balance Gait Function Comments Gait Comments significant FHP, LOB with head turns PT-OP-J Posture/Palpation/Skin Start: 04/22/25 09:04 Freq: Status: Active Protocol: Document 04/22/25 13:59 KW (Rec: 04/22/25 14:29 KW Laptop) Posture Evaluation Position Standing Head/C-Spine Posture Flexed,Forward Head Shoulder Posture (L) Rounded,(R) Rounded Sitting Evaluation View Lateral Head/C-Spine Posture Flexed,Forward Head T-Spine Posture Rotation Left Shoulder Posture (L) Rounded,(R) Rounded Scapula Posture (L) Rotated Down,(R) Rotated Down Pelvis Posture Posterior Tilted Weight Distribution Weight Shifted Right PT-OP-K Range of Motion Start: 04/22/25 09:04 Freq: Status: Active Protocol: Document 04/22/25 13:59 KW (Rec: 04/22/25 14:29 KW Laptop) Lumbar Spine Range of Motion Lumbar Spine Active Testing Position Standing Flexion 70 Comments fingers to top of shoes, forward bend Shoulder Goniometric Range of Motion Shoulder left Shoulder ROM WFL Yes Testing Position Supine right Shoulder ROM WFL No Testing Position Supine Flexion 120 External Rotation at 80 90 degrees Abduction Internal Rotation 90 Hip Goniometric Range of Motion Hip left Hip ROM WFL No Testing Position Supine Flexion w/Knee 90 Flexed Straight Leg Raise 75 Internal Rotation 10 External Rotation 25 right Hip ROM WFL No Testing Position Supine Flexion w/Knee 90 Flexed Straight Leg Raise 75 Internal Rotation 10 External Rotation 25 Knee Goniometric Range of Motion Knee Left Knee ROM WFL No Patient Position Supine Flexion Passive ( 105 degrees) Extension Passive ( 0 degrees) Right Knee ROM WFL No Patient Position Supine Flexion Passive ( 110 degrees) Extension Passive ( 0 degrees) PT-OP-M Strength Start: 04/22/25 09:04 Freq: Status: Active Protocol: Document 04/22/25 13:59 KW (Rec: 04/22/25 14:29 KW Laptop) Shoulder Strength Shoulder Manual Muscle Testing Right Flexion 4 Good Abduction (C5) 4 Good External Rotation 4 Good Internal Rotation 4 Good Left Flexion 4 Good Extension 4 Good Abduction (C5) 4 Good External Rotation 4 Good Internal Rotation 4 Good Hip Strength Hip Manual Muscle Testing Left Flexion (L2) 4- Good- Abduction 4- Good- External Rotation 4- Good- Internal Rotation 4- Good- Right Flexion (L2) 4- Good- Abduction 4- Good- External Rotation 4- Good- Internal Rotation 4- Good- Knee Strength Knee Manual Muscle Testing Left Flexion (S2) 4- Good- Extension (L3) 4- Good- Right Flexion (S2) 4- Good- Extension (L3) 4- Good- PT-OP-Q Treatments Start: 04/22/25 09:04 Freq: Status: Active Protocol: Document 06/01/25 14:28 SP (Rec: 06/01/25 14:39 SP [id number]) Cardio Equipment Recumbent Elliptical ([place]) Duration (Minutes) 5 Resistance 3>1 Seat Position see 4 Other NuStep- BUEs & BLEs 46 SPM, 0.14 miles Therapeutic Exercises Supine Exercises Bryce Stretch Supine Exercise Name Modified (thigh on table)- added to HEp with HO Side right Equipment Used head on 2 pillows and LLE knee bent Reps/Minutes 60 sec Comments good feedback anterior hip gentle stretch post manaul Sidelying Exercises open book Sidelying Exercise added to HEP with HO Name Side bilateral Resistance AROM Reps/Minutes 5 reps Comments cued slow painfree range Manual Therapy Treatment Consent Patient gave verbal Yes consent for manual treatment Soft Tissue Mobilization Lower extremities Body Location R anterior hip/quad/groin/adductor Mobilization Type Other Intensity/Depth Superficial Body Position Hooklying Comments LEs supported on bolster. swelling R>L, both observably improve; positive feedback response. Pt i/s in light edema massage proximal to distal. thoracic Body Location L posterolateral ribcage: ES, TS & LS paraspinal, QL, intercostals R 8-10 Body Position R SL Comments gentle light STMs- good feedback response Joint Mobilizations R hip Direction lateral, inferior, anteromedial Comments PROM lat/inferior, MWM AROM hip ER- good feedback response lateral and anteromedial- small range that moves easier PT-OP-T Assessment and Plan Start: 04/22/25 09:04 Freq: Status: Active Protocol: Document 06/01/25 14:28 SP (Rec: 06/01/25 14:39 SP [id number]) Physical Therapy Assessment Goals Four Impairment impaired gait Short Term Goal (STG patient ambulates with at least 1 trekking pole to ) improve balance and posture 04/29/25: Pt declines either trekking pole or SPC training before/after edu provided for benefit of trekking pole with ambulation. Three Impairment lack of HEP Short Term Goal (STG pt demonstrates indep with HEP - 50% ) STG Duration 6 weeks Two Impairment impaired DASH score 23 % Short Term Goal (STG improve DASH score 50% - MET ) STG Duration 6 weeks One Impairment LEFS score 18% Short Term Goal (STG improved LEFS score 50% ) STG Duration 6 weeks Assessment Summary Assessment Pt good feedback response to gentle light manual to R posterolateral ribcage/spine junction/intercostals, R hip STMs and gentle hip mobs improved pain reduction. Instruction complimentary LTR, open book and modified Bryce stretch on R with femur support. Pt was able to WB into RLE and more upright posture with arm swing leaving. I can't believe how much better my R hip feels. Physical Therapy Plan Frequency and Duration Frequency of 2x/Week Treatment Duration of 6 treatment (weeks) Plan of Care Start 04/22/25 Date Plan of Care End 06/22/25 Date Therapeutic Interventions Therapeutic Balance Training,Gait Training,Home Exercise Program, Interventions Joint Mobilizations,Manual Therapy,Neuromuscular Re- education,Orthotic/Prosthetic Management,Patient/ Caregiver Education,Self-Care/Home Management,Soft Tissue Mobilization,Taping,Therapeutic Activities, Therapeutic Exercises Modalities Cold Pack/Ice Massage,Electric Stimulation,Hot Packs, Ultrasound Next Visit Focus/Plan Next Note Type Treatment Note Next Visit Plan Recheck R anterior hip pain and posterolateral ribcage last tx. Caution of hurdles, see Subjective today. Next trial standing resisted shld ext for core/bal/ posture, facing wall slides scaption progression and SLS cone taps to encourage posture corrections more tall forward COG. POC: Nustep warm up // bars for balance gait with head turns and trekking pole trial possibly shuttle
--- NOTE | 2025-06-10 16:21 | PT.OTN ---
Current Diagnoses Other chronic pain (06/10/25) Pain in right shoulder (06/10/25) Pain in left shoulder (06/10/25) Pain in thoracic spine (06/10/25) Physical Therapy Treatment Note PT-OP-A Visit Information Start: 04/22/25 09:04 Freq: Status: Active Protocol: Document 06/10/25 16:09 KW (Rec: 06/10/25 16:21 KW Laptop) Out-Patient Physical Therapy Visit Information Visit Information Visit Type Progress Note Visit Note word finding PLAN OF CARE UPDATE Visit Start Time 14:30 Visit Stop Time 15:15 Visit Number 9 Evaluation Information Evaluation Date 04/22/25 Precautions Precautions none PT-OP-B Current Condition Start: 04/22/25 09:04 Freq: Status: Active Protocol: Document 06/10/25 16:09 KW (Rec: 06/10/25 16:21 KW Laptop) Current Condition History of Current Condition Onset Date chronic Current Complaints B shoulder pain, upper thoracic pain, B hip and knee pain, toe pain 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 She walks 1/2 mile daily in community. Chooses to not use cane, trekking poles or walker. She is still driving. She is very limited in her eating due to a very extensive swallowing issue causes by trauma of a large tube during a medical procedure. Prior Treatments and has not had dexa scan Tests PT-OP-C Subjective Start: 04/22/25 09:04 Freq: Status: Active Protocol: Document 06/10/25 16:09 KW (Rec: 06/10/25 16:21 KW Laptop) OP-PT Subjective Patient Comments Patient Comments Pt c/o L posterlateral ribcage and R anterior hip/groin pain at arrival. Feels PT is helping. No Falls Monitors BP daily has dental work coming up then will go see wheelchair rental clerk Patient Questionnaires Oswestry Low Back Index Oswestry Score 18% Oswestry Impairment 1 to 19% Impaired (Score 1-19) Quick Dash- Upper Extremity Quick Dash UE Score 23% Quick Dash UE 20 to 39% Impaired (Score 20-39) Impairment OP-PT Pain Assessment Pain Assessment Grid Paper Pain Yes Assessment Grid Completed Location R shoulder Pain Location r shoulder, L shoulder, knees, back, hips all the same Details Intensity 5 Scale Used Numeric (0 - 10) Description Aching,Burning,Cramping,Dull,Pinching,Pulling,Sharp Frequency Frequent Pain Aggravating Position,Changing Position,ADL's Factors Pain Alleviating Cold,Heat,Medication Factors PT-OP-D Balance Start: 04/22/25 09:04 Freq: Status: Active Protocol: Document 06/10/25 16:09 KW (Rec: 06/10/25 16:21 KW Laptop) OP-PT Balance Assessment Standing Balance Static Standing Good Balance Ability Dynamic Standing Normal Balance Ability Standing Balance LOB with head turns - improving Comments Lara Fall Scale Copyright Permission PT-OP-E Functional Tests Start: 04/22/25 09:04 Freq: Status: Active Protocol: Document 06/10/25 16:09 KW (Rec: 06/10/25 16:21 KW Laptop) Functional Tests 30 Second Sit to Stand Test Score 6 Comments pain in legs and feet- no longer complains of this Timed Up and Go (TUG) Score 12 TUG Impairment 20 to <40% Impaired (Score 12-13) Rating PT-OP-F Manual Assessment Start: 04/22/25 09:04 Freq: Status: Active Protocol: Document 06/10/25 16:09 KW (Rec: 06/10/25 16:21 KW Laptop) Manual Assessments Joint Mobility Assessment Joint Mobility stiffness B hips posterior/inferior capsules Assessment stiffness T-spine, kyphosis - improved after manual assist work to ribcage in R/L sidelying PT-OP-G Mobility & Gait Start: 04/22/25 09:04 Freq: Status: Active Protocol: Document 06/10/25 16:09 KW (Rec: 06/10/25 16:21 KW Laptop) OP Mobility Evaluation Bed Mobility Rolling cues for log roll, breathing, bending knees Supine to and from cues to keep knees flexed, breathing Sit Transfers Sit to Stand indep with use of hands Functional Movements Squats Indep, pain in hips/knees, thighs - improved alignment OP Gait Assessment Gait Gait Assistance Independent Required: Distance (Feet) 500 Assistive Devices Assistive Device None Gait Deviations General Gait Pattern Flexed Trunk Factors Limiting Gait Function Factors Limiting Poor Balance Gait Function Comments Gait Comments significant FHP, LOB with head turns - improving balance PT-OP-J Posture/Palpation/Skin Start: 04/22/25 09:04 Freq: Status: Active Protocol: Document 06/10/25 16:09 KW (Rec: 06/10/25 16:21 KW Laptop) Posture Evaluation Position Standing Head/C-Spine Posture Flexed,Forward Head Shoulder Posture (L) Rounded,(R) Rounded Sitting Evaluation View Lateral Head/C-Spine Posture Flexed,Forward Head T-Spine Posture Rotation Left Shoulder Posture (L) Rounded,(R) Rounded Scapula Posture (L) Rotated Down,(R) Rotated Down Pelvis Posture Posterior Tilted Weight Distribution Weight Shifted Right Comments Posture Comments improved with trekking poles, patient refuses to use PT-OP-K Range of Motion Start: 04/22/25 09:04 Freq: Status: Active Protocol: Document 06/10/25 16:09 KW (Rec: 06/10/25 16:21 KW Laptop) Lumbar Spine Range of Motion Lumbar Spine Active Testing Position Standing Flexion 70 Comments fingers to top of shoes, forward bend - most motion from T spine Shoulder Goniometric Range of Motion Shoulder left Shoulder ROM WFL Yes Testing Position Supine right Shoulder ROM WFL No Testing Position Supine Flexion 120 External Rotation at 80 90 degrees Abduction Internal Rotation 90 Hip Goniometric Range of Motion Hip left Hip ROM WFL No Testing Position Supine Flexion w/Knee 90 Flexed Straight Leg Raise 75 Internal Rotation 10 External Rotation 35 Knee Goniometric Range of Motion Knee Left Knee ROM WFL No Patient Position Supine Flexion Passive ( 110 degrees) Extension Passive ( 0 degrees) Right Knee ROM WFL No Patient Position Supine Flexion Passive ( 110 degrees) Extension Passive ( 0 degrees) PT-OP-M Strength Start: 04/22/25 09:04 Freq: Status: Active Protocol: Document 06/10/25 16:09 KW (Rec: 06/10/25 16:21 KW Laptop) Shoulder Strength Shoulder Manual Muscle Testing Right Flexion 4 Good Abduction (C5) 4 Good External Rotation 4 Good Internal Rotation 4 Good Left Flexion 4 Good Extension 4 Good Abduction (C5) 4 Good External Rotation 4 Good Internal Rotation 4 Good Hip Strength Hip Manual Muscle Testing Left Flexion (L2) 4 Good Abduction 4 Good External Rotation 4 Good Internal Rotation 4 Good Right Flexion (L2) 4 Good Abduction 4 Good External Rotation 4 Good Internal Rotation 4 Good PT-OP-Q Treatments Start: 04/22/25 09:04 Freq: Status: Active Protocol: Document 06/10/25 16:09 KW (Rec: 06/10/25 16:21 KW Laptop) Cardio Equipment Recumbent Elliptical ([employer]) Duration (Minutes) 4 Resistance 3>1 Seat Position see 4 Other NuStep- BUEs & BLEs 46 SPM, 0.14 miles Gym Equipment Shuttle Rebound red clip Exercise Details tandem and narrow DORIS, wt shifting Comments working on balance reactions Shuttle Balance Blue clips Details WBOS, NBOS Reps/Duration 30s ea Comments stilling platform, maintaining balance: -EO/EC -Head turns/nods Therapeutic Exercises Supine Exercises Bryce Stretch Supine Exercise Name Modified (thigh on table)- Side right Equipment Used head on 2 pillows and LLE knee bent Reps/Minutes 60 sec Comments good feedback anterior hip gentle stretch post manaul Sidelying Exercises open book Sidelying Exercise added to HEP with HO Name Side bilateral Resistance AROM Reps/Minutes 5 reps Comments cued slow painfree range Standing Exercises Heel Raises, Toe Raises Standing Exercise 1. HR 2. DF toe raises Name Side bilateral Equipment Used //bar support Reps/Minutes 10 reps each Comments cued for proper form, not wt shift buttocks back during DF/TR- improved Sit to stand Equipment Used standard mesh chair, cross arms over chest Reps/Minutes x8 Comments cues for LE alignment, scoot fwd, feet underneath, hip hinge asc/desc Hip swings Standing Exercise hip swings, squats with good alignment, heel raises Name Reps/Minutes 10 each gastroc stretch Standing Exercise using wall and JOSE wedge Name Side bilateral Equipment Used //bars BUE support Reps/Minutes 3 x 30 sec Comments reports good gastroc stretch R>L Gait Training Gait Activity head turns Description walking with upright posture: fwd recip arm swing /c head turns, back walk Level of Assistance CGA Surface hallway tile Distance/Duration 50 ft fwd 1 lap, 20 ft backward 1 laps Treatment Focus arm swing amplitude, postural education Comments cues for head up, sternum forward, tall posture and arm swings -trunk vier L during HT L x1 then better self correction midline stability Pt continues declines both trekking pole or SPC training before and after education provided for benefit of trekking pole with ambulation Neuro Re-Education Treatment Balance Activities foam pad january Details WBOS, Stride Stance (2 apart), no marching 05/23/25 Surface 2 foam Equipment // bars, GB Comments EO w/ head turns, EC R ft fwd 11 sec L fwd 28 sec before LOB. - minimal sways but contact rail PRN. Next add leg wt to marching on foam and maybe add cone taps. stepping over hurdles Details fwd reciprocal, lateral step to Equipment 5 hurdles with foam between Reps/Duration //bars 2 laps Comments cued head up, heel clearance, elongated posture. Self-Care/Home Management Treatment Education Patient Education Body Mechanics,Fall Risk,Home Exercise Program,Posture, Safety PT-OP-T Assessment and Plan Start: 04/22/25 09:04 Freq: Status: Active Protocol: Document 06/10/25 16:09 KW (Rec: 06/10/25 16:21 KW Laptop) Physical Therapy Assessment Rehab Potential Rehabilitation Good Potential Evaluation Complexity Number of Personal 3 or More Factors/ Comorbidities Number of Body 4 or More Systems Impaired Clinical Unstable Presentation at Evaluation Impairments Impairments Activity Tolerance,Balance,Edema,Functional Activities, Gait,Pain,Posture,ROM,Strength Other Concerns Fall Risk yes Goals Four Impairment impaired gait Short Term Goal (STG patient ambulates with at least 1 trekking pole to ) improve balance and posture 04/29/25: Pt declines either trekking pole or SPC training before/after edu provided for benefit of trekking pole with ambulation. Three Impairment lack of HEP Short Term Goal (STG pt demonstrates indep with HEP - 50% ) STG Duration 6 weeks Two Impairment impaired DASH score 23 % Short Term Goal (STG improve DASH score 50% - MET ) STG Duration 6 weeks One Impairment LEFS score 18% Short Term Goal (STG improved LEFS score 50% ) STG Duration 6 weeks Assessment Summary Assessment patient with good participation in PT sessions, not as compliant with HEP, unable to demonstrate understanding and caryover. Strongly recommend Trekking poles, pt is adamant she will not use a device. Seated FWW would be a good option as well. recommend continued PT to work on LE strength, balance, endurance, pain management, gait in order to reduce risk of falls. Physical Therapy Plan Frequency and Duration Frequency of 2x/Week Treatment Duration of 12 treatment (weeks) Plan of Care Start 06/10/25 Date Plan of Care End 09/10/25 Date Therapeutic Interventions Therapeutic Balance Training,Gait Training,Home Exercise Program, Interventions Joint Mobilizations,Manual Therapy,Neuromuscular Re- education,Orthotic/Prosthetic Management,Patient/ Caregiver Education,Self-Care/Home Management,Soft Tissue Mobilization,Taping,Therapeutic Activities, Therapeutic Exercises Modalities Cold Pack/Ice Massage,Electric Stimulation,Hot Packs, Ultrasound Next Visit Focus/Plan Next Note Type Treatment Note Next Visit Plan Next trial standing resisted shld ext for core/bal/ posture, facing wall slides scaption progression and SLS cone taps to encourage posture corrections more tall forward COG. POC: Nustep warm up // bars for balance gait with head turns and trekking pole trial possibly shuttle
--- NOTE | 2025-06-10 16:21 | PT.OPPOC ---
Physical, Occupational & Speech Therapy At [facility] Current Diagnoses Other chronic pain (06/10/25) Pain in right shoulder (06/10/25) Pain in left shoulder (06/10/25) Pain in thoracic spine (06/10/25) Visit Care Team Role Provider Type ONEIL Harrison Attending Provider Non-Staff Family Provider Primary Care Provider Referring Provider Specialty: Medical Address: [address] [place] [address], [id number] Email: Plan Of Care PT-OP-B Current Condition Start: 04/22/25 09:04 Freq: Status: Active Protocol: Document 06/10/25 16:09 KW (Rec: 06/10/25 16:21 KW Laptop) Current Condition History of Current Condition Onset Date chronic Current Complaints B shoulder pain, upper thoracic pain, B hip and knee pain, toe pain 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 She walks 1/2 mile daily in community. Chooses to not use cane, trekking poles or walker. She is still driving. She is very limited in her eating due to a very extensive swallowing issue causes by trauma of a large tube during a medical procedure. Prior Treatments and has not had dexa scan Tests PT-OP-T Assessment and Plan Start: 04/22/25 09:04 Freq: Status: Active Protocol: Document 06/10/25 16:09 KW (Rec: 06/10/25 16:21 KW Laptop) Physical Therapy Assessment Rehab Potential Rehabilitation Good Potential Evaluation Complexity Number of Personal 3 or More Factors/ Comorbidities Number of Body 4 or More Systems Impaired Clinical Unstable Presentation at Evaluation Impairments Impairments Activity Tolerance,Balance,Edema,Functional Activities, Gait,Pain,Posture,ROM,Strength Other Concerns Fall Risk yes Goals Four Impairment impaired gait Short Term Goal (STG patient ambulates with at least 1 trekking pole to ) improve balance and posture 04/29/25: Pt declines either trekking pole or SPC training before/after edu provided for benefit of trekking pole with ambulation. Three Impairment lack of HEP Short Term Goal (STG pt demonstrates indep with HEP - 50% ) STG Duration 6 weeks Two Impairment impaired DASH score 23 % Short Term Goal (STG improve DASH score 50% - MET ) STG Duration 6 weeks One Impairment LEFS score 18% Short Term Goal (STG improved LEFS score 50% ) STG Duration 6 weeks Assessment Summary Assessment patient with good participation in PT sessions, not as compliant with HEP, unable to demonstrate understanding and caryover. Strongly recommend Trekking poles, pt is adamant she will not use a device. Seated FWW would be a good option as well. recommend continued PT to work on LE strength, balance, endurance, pain management, gait in order to reduce risk of falls. Physical Therapy Plan Frequency and Duration Frequency of 2x/Week Treatment Duration of 12 treatment (weeks) Plan of Care Start 06/10/25 Date Plan of Care End 09/10/25 Date Therapeutic Interventions Therapeutic Balance Training,Gait Training,Home Exercise Program, Interventions Joint Mobilizations,Manual Therapy,Neuromuscular Re- education,Orthotic/Prosthetic Management,Patient/ Caregiver Education,Self-Care/Home Management,Soft Tissue Mobilization,Taping,Therapeutic Activities, Therapeutic Exercises Modalities Cold Pack/Ice Massage,Electric Stimulation,Hot Packs, Ultrasound Next Visit Focus/Plan Next Note Type Treatment Note Next Visit Plan Next trial standing resisted shld ext for core/bal/ posture, facing wall slides scaption progression and SLS cone taps to encourage posture corrections more tall forward COG. POC: Nustep warm up // bars for balance gait with head turns and trekking pole trial possibly shuttle Plan of Care Dates Plan of Care Start Date 06/10/25 Plan of Care End Date 09/10/25 Electronically Signed by: Jemima Andrew PT 06/10/25 0908 If you are in agreement with this Plan of Care, please return a signed and dated copy. I have reviewed this Plan of Care and certify that the skilled therapy services above are required to meet the patient?s needs. Physician Signature Date Printed Name and Credentials Clinical Instructor Signature Printed Name and Credentials
--- NOTE | 2025-06-23 15:50 | PT.OTN ---
Current Diagnoses Other chronic pain (06/23/25) Pain in right shoulder (06/23/25) Pain in left shoulder (06/23/25) Pain in thoracic spine (06/23/25) Physical Therapy Treatment Note PT-OP-A Visit Information Start: 04/22/25 09:04 Freq: Status: Active Protocol: Document 06/23/25 15:04 KW (Rec: 06/23/25 15:49 KW Laptop) Out-Patient Physical Therapy Visit Information Visit Information Visit Type Treatment Note Visit Note word finding Visit Start Time 14:30 Visit Stop Time 15:10 Visit Number 10 PT-OP-B Current Condition Start: 04/22/25 09:04 Freq: Status: Active Protocol: Document 06/10/25 16:09 KW (Rec: 06/10/25 16:21 KW Laptop) Current Condition History of Current Condition Onset Date chronic Current Complaints B shoulder pain, upper thoracic pain, B hip and knee pain, toe pain 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 She walks 1/2 mile daily in community. Chooses to not use cane, trekking poles or walker. She is still driving. She is very limited in her eating due to a very extensive swallowing issue causes by trauma of a large tube during a medical procedure. Prior Treatments and has not had dexa scan Tests PT-OP-C Subjective Start: 04/22/25 09:04 Freq: Status: Active Protocol: Document 06/23/25 15:04 KW (Rec: 06/23/25 15:49 KW Laptop) OP-PT Subjective Patient Comments Patient Comments is trying to find a new doctor c/o wrist pain c/o toe pain OP-PT Pain Assessment Location R shoulder Pain Location r shoulder, L shoulder, knees, back, hips all the same Details Scale Used Numeric (0 - 10) Description Aching,Burning,Cramping,Dull,Pinching,Pulling,Sharp Frequency Frequent Pain Alleviating Cold,Heat,Medication Factors Pain Aggravating Position,Changing Position,ADL's Factors PT-OP-D Balance Start: 04/22/25 09:04 Freq: Status: Active Protocol: Document 06/10/25 16:09 KW (Rec: 06/10/25 16:21 KW Laptop) OP-PT Balance Assessment Standing Balance Static Standing Good Balance Ability Dynamic Standing Normal Balance Ability Standing Balance LOB with head turns - improving Comments Lara Fall Scale Copyright Permission PT-OP-E Functional Tests Start: 04/22/25 09:04 Freq: Status: Active Protocol: Document 06/10/25 16:09 KW (Rec: 06/10/25 16:21 KW Laptop) Functional Tests 30 Second Sit to Stand Test Score 6 Comments pain in legs and feet- no longer complains of this Timed Up and Go (TUG) Score 12 TUG Impairment 20 to <40% Impaired (Score 12-13) Rating PT-OP-F Manual Assessment Start: 04/22/25 09:04 Freq: Status: Active Protocol: Document 06/10/25 16:09 KW (Rec: 06/10/25 16:21 KW Laptop) Manual Assessments Joint Mobility Assessment Joint Mobility stiffness B hips posterior/inferior capsules Assessment stiffness T-spine, kyphosis - improved after manual assist work to ribcage in R/L sidelying PT-OP-G Mobility & Gait Start: 04/22/25 09:04 Freq: Status: Active Protocol: Document 06/10/25 16:09 KW (Rec: 06/10/25 16:21 KW Laptop) OP Mobility Evaluation Bed Mobility Rolling cues for log roll, breathing, bending knees Supine to and from cues to keep knees flexed, breathing Sit Transfers Sit to Stand indep with use of hands Functional Movements Squats Indep, pain in hips/knees, thighs - improved alignment OP Gait Assessment Gait Gait Assistance Independent Required: Distance (Feet) 500 Assistive Devices Assistive Device None Gait Deviations General Gait Pattern Flexed Trunk Factors Limiting Gait Function Factors Limiting Poor Balance Gait Function Comments Gait Comments significant FHP, LOB with head turns - improving balance PT-OP-J Posture/Palpation/Skin Start: 04/22/25 09:04 Freq: Status: Active Protocol: Document 06/10/25 16:09 KW (Rec: 06/10/25 16:21 KW Laptop) Posture Evaluation Position Standing Head/C-Spine Posture Flexed,Forward Head Shoulder Posture (L) Rounded,(R) Rounded Sitting Evaluation View Lateral Head/C-Spine Posture Flexed,Forward Head T-Spine Posture Rotation Left Shoulder Posture (L) Rounded,(R) Rounded Scapula Posture (L) Rotated Down,(R) Rotated Down Pelvis Posture Posterior Tilted Weight Distribution Weight Shifted Right Comments Posture Comments improved with trekking poles, patient refuses to use PT-OP-K Range of Motion Start: 04/22/25 09:04 Freq: Status: Active Protocol: Document 06/10/25 16:09 KW (Rec: 06/10/25 16:21 KW Laptop) Lumbar Spine Range of Motion Lumbar Spine Active Testing Position Standing Flexion 70 Comments fingers to top of shoes, forward bend - most motion from T spine Shoulder Goniometric Range of Motion Shoulder left Shoulder ROM WFL Yes Testing Position Supine right Shoulder ROM WFL No Testing Position Supine Flexion 120 External Rotation at 80 90 degrees Abduction Internal Rotation 90 Hip Goniometric Range of Motion Hip left Hip ROM WFL No Testing Position Supine Flexion w/Knee 90 Flexed Straight Leg Raise 75 Internal Rotation 10 External Rotation 35 Knee Goniometric Range of Motion Knee Left Knee ROM WFL No Patient Position Supine Flexion Passive ( 110 degrees) Extension Passive ( 0 degrees) Right Knee ROM WFL No Patient Position Supine Flexion Passive ( 110 degrees) Extension Passive ( 0 degrees) PT-OP-M Strength Start: 04/22/25 09:04 Freq: Status: Active Protocol: Document 06/10/25 16:09 KW (Rec: 06/10/25 16:21 KW Laptop) Shoulder Strength Shoulder Manual Muscle Testing Right Flexion 4 Good Abduction (C5) 4 Good External Rotation 4 Good Internal Rotation 4 Good Left Flexion 4 Good Extension 4 Good Abduction (C5) 4 Good External Rotation 4 Good Internal Rotation 4 Good Hip Strength Hip Manual Muscle Testing Left Flexion (L2) 4 Good Abduction 4 Good External Rotation 4 Good Internal Rotation 4 Good Right Flexion (L2) 4 Good Abduction 4 Good External Rotation 4 Good Internal Rotation 4 Good PT-OP-Q Treatments Start: 04/22/25 09:04 Freq: Status: Active Protocol: Document 06/23/25 15:04 KW (Rec: 06/23/25 15:49 KW Laptop) Cardio Equipment Recumbent Elliptical (NuStep) Duration (Minutes) 4 Resistance 3>1 Seat Position see 4 Other NuStep- BUEs & BLEs 46 SPM, 0.14 miles Recumbent Stepper (Sci-Fit) Duration (Minutes) 4 Seat Position seat 7 Gym Equipment Shuttle Recovery leg press Details B 37# single 25# Reps/Time x 10 each Shuttle Rebound red clip Exercise Details tandem and narrow DORIS, wt shifting Comments working on balance reactions Shuttle Balance Blue clips Details WBOS, NBOS Reps/Duration 30s ea Comments stilling platform, maintaining balance: -EO/EC -Head turns/nods Sport Cord posterior walking Comments orange cord, walking backward. x 5 reps Therapeutic Exercises Supine Exercises Bryce Stretch Supine Exercise Name Modified (thigh on table)- Side right Equipment Used head on 2 pillows and LLE knee bent Reps/Minutes 60 sec Comments good feedback anterior hip gentle stretch post manaul Sidelying Exercises open book Side bilateral Resistance AROM Reps/Minutes 5 reps Comments cued slow painfree range Standing Exercises Heel Raises, Toe Raises Standing Exercise 1. HR 2. DF toe raises Name Side bilateral Equipment Used //bar support Reps/Minutes 10 reps each Comments cued for proper form, not wt shift buttocks back during DF/TR- improved Sit to stand Equipment Used standard mesh chair, cross arms over chest Reps/Minutes x8 Comments cues for LE alignment, scoot fwd, feet underneath, hip hinge asc/desc Hip swings Standing Exercise hip swings, squats with good alignment, heel raises Name Reps/Minutes 10 each gastroc stretch Standing Exercise using wall and JOSE wedge Name Side bilateral Equipment Used //bars BUE support Reps/Minutes 3 x 30 sec Comments reports good gastroc stretch R>L PT-OP-T Assessment and Plan Start: 04/22/25 09:04 Freq: Status: Active Protocol: Document 06/23/25 15:04 KW (Rec: 06/23/25 15:49 KW Laptop) Physical Therapy Assessment Rehab Potential Rehabilitation Good Potential Evaluation Complexity Number of Personal 3 or More Factors/ Comorbidities Number of Body 4 or More Systems Impaired Clinical Unstable Presentation at Evaluation Impairments Impairments Activity Tolerance,Balance,Edema,Functional Activities, Gait,Pain,Posture,ROM,Strength Other Concerns Fall Risk yes Goals Four Impairment impaired gait Short Term Goal (STG patient ambulates with at least 1 trekking pole to ) improve balance and posture 04/29/25: Pt declines either trekking pole or SPC training before/after edu provided for benefit of trekking pole with ambulation. Three Impairment lack of HEP Short Term Goal (STG pt demonstrates indep with HEP - 50% ) STG Duration 6 weeks Two Impairment impaired DASH score 23 % Short Term Goal (STG improve DASH score 50% - MET ) STG Duration 6 weeks One Impairment LEFS score 18% Short Term Goal (STG improved LEFS score 50% ) STG Duration 6 weeks Assessment Summary Assessment patient with good participation in PT sessions, not as compliant with HEP, unable to demonstrate understanding and caryover. Strongly recommend Trekking poles, pt is adamant she will not use a device. Seated FWW would be a good option as well. recommend continued PT to work on LE strength, balance, endurance, pain management, gait in order to reduce risk of falls. Physical Therapy Plan Frequency and Duration Frequency of 2x/Week Treatment Duration of 12 treatment (weeks) Plan of Care Start 06/10/25 Date Plan of Care End 09/10/25 Date Next Visit Focus/Plan Next Note Type Treatment Note Next Visit Plan Recheck R anterior hip pain and posterolateral ribcage last tx. Caution of hurdles, see Subjective today. Next trial standing resisted shld ext for core/bal/ posture, facing wall slides scaption progression and SLS cone taps to encourage posture corrections more tall forward COG. POC: Nustep warm up // bars for balance gait with head turns and trekking pole trial
--- NOTE | 2025-06-29 13:28 | PT.OTN ---
Current Diagnoses Other chronic pain (06/29/25) Pain in right shoulder (06/29/25) Pain in left shoulder (06/29/25) Pain in thoracic spine (06/29/25) Physical Therapy Treatment Note PT OP: Balance, Vestibular, Neuro Start: 06/29/25 13:08 Freq: Status: Active Protocol: Document 06/29/25 13:09 KW (Rec: 06/29/25 13:28 KW Laptop) Out-Patient Physical Therapy Visit Information Visit Information Visit Type Treatment Note Visit Note word finding Visit Start Time 13:00 Visit Stop Time 13:40 Visit Number 11 OP-PT Subjective Patient Comments Patient Comments had her birthday yesterday, 89 went over to [place] to see the [place] Feeling good today Cardio Equipment Recumbent Elliptical (NuStep) Duration (Minutes) 5 Resistance 3>1 Seat Position see 4 Other NuStep- BUEs & BLEs 46 SPM, 0.14 miles Gym Equipment Shuttle Recovery leg press Details B 25# single 25# Reps/Time x 10 each Shuttle Rebound red clip Exercise Details tandem and narrow DORIS, wt shifting Comments working on balance reactions Shuttle Balance Blue clips Details WBOS, NBOS Reps/Duration 30s ea Comments stilling platform, maintaining balance: -EO/EC -Head turns/nods Sport Cord posterior walking Comments orange cord, walking backward. x 5 reps Therapeutic Exercises Supine Exercises physioball routine Supine Exercise Name supine hamstring curl, LTR, Bridge Reps/Minutes x 10 each Comments coordinated breathing Sidelying Exercises open book Side bilateral Resistance AROM Reps/Minutes 5 reps Comments cued slow painfree range Physical Therapy Assessment Goals Four Impairment impaired gait Short Term Goal (STG patient ambulates with at least 1 trekking pole to ) improve balance and posture 04/29/25: Pt declines either trekking pole or SPC training before/after edu provided for benefit of trekking pole with ambulation. Three Impairment lack of HEP Short Term Goal (STG pt demonstrates indep with HEP - 50% ) STG Duration 6 weeks Two Impairment impaired DASH score 23 % Short Term Goal (STG improve DASH score 50% - MET ) STG Duration 6 weeks One Impairment LEFS score 18% Short Term Goal (STG improved LEFS score 50% ) STG Duration 6 weeks Assessment Summary Assessment increased LBP with leg press today, had to decrease to 25# new onset B UE pain relieved by topical gel max cues for nasal breathing, breathing during ther-ex Physical Therapy Plan Frequency and Duration Frequency of 2x/Week Treatment Duration of 12 treatment (weeks) Plan of Care Start 06/10/25 Date Plan of Care End 09/10/25 Date Next Visit Focus/Plan Next Note Type Treatment Note Next Visit Plan Nustep warm up // bars for balance gait with head turns and trekking pole trial HEP
--- NOTE | 2025-07-06 13:17 | PT.OTN ---
Current Diagnoses Other chronic pain (07/06/25) Pain in right shoulder (07/06/25) Pain in left shoulder (07/06/25) Pain in thoracic spine (07/06/25) Physical Therapy Treatment Note PT OP: Balance, Vestibular, Neuro Start: 06/29/25 13:08 Freq: Status: Active Protocol: Document 07/06/25 13:11 KW (Rec: 07/06/25 13:17 KW Laptop) Out-Patient Physical Therapy Visit Information Visit Information Visit Type Treatment Note Visit Note word finding Visit Start Time 13:00 Visit Stop Time 13:40 Visit Number 12 OP-PT Subjective Patient Comments Patient Comments saw ND re: nutrition status. She was very overwhelmed by the visit and felt criticized Cardio Equipment Recumbent Elliptical (NuStep) Duration (Minutes) 5 Resistance 3>1 Seat Position see 4 Other NuStep- BUEs & BLEs 46 SPM, 0.14 miles Gym Equipment Shuttle Recovery leg press Details B 25# single 25# Reps/Time x 10 each Shuttle Rebound red clip Exercise Details tandem and narrow DORIS, wt shifting Comments working on balance reactions Shuttle Balance Blue clips Details WBOS, NBOS Reps/Duration 30s ea Comments stilling platform, maintaining balance: -EO/EC -Head turns/nods Sport Cord posterior walking Comments orange cord, walking backward. x 5 reps Therapeutic Exercises Supine Exercises physioball routine Supine Exercise Name supine hamstring curl, LTR, Bridge Reps/Minutes x 10 each Comments coordinated breathing Bryce Stretch Supine Exercise Name Modified (thigh on table)- Side right Equipment Used head on 2 pillows and LLE knee bent Reps/Minutes 60 sec Comments good feedback anterior hip gentle stretch post manaul Sidelying Exercises open book Side bilateral Resistance AROM Reps/Minutes 5 reps Comments cued slow painfree range Standing Exercises Heel Raises, Toe Raises Standing Exercise 1. HR 2. DF toe raises Name Side bilateral Equipment Used //bar support Reps/Minutes 10 reps each Comments cued for proper form, not wt shift buttocks back during DF/TR- improved Sit to stand Equipment Used standard mesh chair, cross arms over chest Reps/Minutes x8 Comments cues for LE alignment, scoot fwd, feet underneath, hip hinge asc/desc Hip swings Standing Exercise hip swings, squats with good alignment, heel raises Name Reps/Minutes 10 each gastroc stretch Standing Exercise using wall and JOSE wedge Name Side bilateral Equipment Used //bars BUE support Reps/Minutes 3 x 30 sec Comments reports good gastroc stretch R>L Neuro Re-Education Treatment Balance Activities HEP review Details 2 RN INTEGRATED>1 RN INTEGRATED> No hands as tolerated Surface firm Equipment handrail Reps/Duration x5 ea Comments 1. Toe raise B - corrected from Heel raise 2. Step out and back B - cues to also step to R 3. Hip ext B 4. SL balance B - 2 RN INTEGRATED>1 RN INTEGRATED> No hands 5. Tandem balance B - 2 RN INTEGRATED>1 RN INTEGRATED pt asks about braiding stance and is i/s to avoid at this time. foam pad march Details WBOS, Stride Stance (2 apart), no marching 05/23/25 Surface 2 foam Equipment // bars, GB Comments EO w/ head turns, EC R ft fwd 11 sec L fwd 28 sec before LOB. - minimal sways but contact rail PRN. Next add leg wt to marching on foam and maybe add cone taps. BOSU Details BOSU wt shift AP/ML, head up, light juvenile probation officer on bars Comments CGA with belt stepping over hurdles Details fwd reciprocal, lateral step to Equipment 5 hurdles with foam between Reps/Duration //bars 2 laps Comments cued head up, heel clearance, elongated posture. // bars series Details tandem stance head turns, narrow DORIS, head turns Reps/Duration 3 min standing chair balance Details handout issued Comments stand at chair, back to corner or bed narrow BOW, tandem with head turns Self-Care/Home Management Treatment Education Patient Education Body Mechanics,Fall Risk,Home Exercise Program,Posture, Safety Physical Therapy Assessment Goals Four Impairment impaired gait Short Term Goal (STG patient ambulates with at least 1 trekking pole to ) improve balance and posture 04/29/25: Pt declines either trekking pole or SPC training before/after edu provided for benefit of trekking pole with ambulation. Three Impairment lack of HEP Short Term Goal (STG pt demonstrates indep with HEP - 70% ) STG Duration 6 weeks Two Impairment impaired DASH score 23 % Short Term Goal (STG improve DASH score 50% - MET ) STG Duration 6 weeks One Impairment LEFS score 18% Short Term Goal (STG improved LEFS score 50% ) STG Duration 6 weeks Assessment Summary Assessment R groin pain limiting factor today, encouragement given to do the best she can with nutrition and to not take it personally s/p ND apt as she was quite upset about the visit. Physical Therapy Plan Frequency and Duration Frequency of 2x/Week Treatment Duration of 12 treatment (weeks) Plan of Care Start 06/10/25 Date Plan of Care End 09/10/25 Date Next Visit Focus/Plan Next Note Type Treatment Note Next Visit Plan Nustep warm up // bars for balance gait with head turns and trekking pole trial HEP
--- NOTE | 2025-07-13 14:30 | PT.OTN ---
Current Diagnoses Other chronic pain (07/13/25) Pain in right shoulder (07/13/25) Pain in left shoulder (07/13/25) Pain in thoracic spine (07/13/25) Physical Therapy Treatment Note PT OP: Balance, Vestibular, Neuro Start: 06/29/25 13:08 Freq: Status: Active Protocol: Document 07/13/25 13:49 SP (Rec: 07/14/25 10:30 SP [id number]) Out-Patient Physical Therapy Visit Information Visit Information Visit Type Treatment Note Visit Note *word finding Visit Start Time 13:49 Visit Stop Time 14:30 Visit Number [id number] Number of INSULATION NOZZLEMAN Visits 1 Progress Note Due 07/10/25 Precautions Precautions none OP-PT Subjective Patient Comments Patient Comments Pt reports had a fall over the weekend was sitting on bench/picnic table and persons on other side got up and tipped it over resulting in her falling off onto the floor. She states her R hip and L shld are bothersome but didn't have to see Dr, reports no bruising, declines use theraband exercises today due to could hurt today while still recovering from fall. Cardio Equipment Recumbent Elliptical (NuStep) Duration (Minutes) 3 Resistance 1 Seat Position see 4, handles 11>9- cued posture TA, only speed/ROM fluid ROM not painful Other NuStep- BUEs & BLEs before stopped L shld and R leg started get irritated Therapeutic Exercises Supine Exercises physioball routine Supine Exercise Name Core series: 1. supine hamstring curl 2. LTR 3. Bridge Reps/Minutes 1-2. AROM 5 reps, TB #1 x 10 each 3. AROM Comments coordinated breathing, slow segmental range, not over range to allow core Sidelying Exercises open book Side bilateral Resistance AROM (5 reps)> !# DB (10 reps) Comments cued slow painfree range tactile cues for slower pacing control Manual Therapy Treatment Consent Patient gave verbal Yes consent for manual treatment Soft Tissue Mobilization L shld Body Location L pec, RTC, PROM FF, ABD, HABD then AROM Comments good feedback manual STMs, PROM then cues slow ROM Lower extremities Body Location R anterior hip/quad/groin/adductor Mobilization Type Other Intensity/Depth Superficial Body Position Hooklying Comments LEs supported on bolster. swelling R>L, both observably improve; positive feedback response. Pt i/s in light edema massage proximal to distal. Neuro Re-Education Treatment Balance Activities BOSU Details BOSU wt shift AP/ML, head up, light explosive operator bomb on bar 1 UE Comments CGA with belt Physical Therapy Assessment Goals Four Impairment impaired gait Short Term Goal (STG patient ambulates with at least 1 trekking pole to ) improve balance and posture 04/29/25: Pt declines either trekking pole or SPC training before/after edu provided for benefit of trekking pole with ambulation. Three Impairment lack of HEP Short Term Goal (STG pt demonstrates indep with HEP - 70% ) STG Duration 6 weeks Two Impairment impaired DASH score 23 % Short Term Goal (STG improve DASH score 50% - MET ) STG Duration 6 weeks One Impairment LEFS score 18% Short Term Goal (STG improved LEFS score 50% ) STG Duration 6 weeks Assessment Summary Assessment Pt improved hip and LS mobililty with core series ther ex today, doesn't have tball at home but instructed hooklying knees bent feet on table/bed, cued set up/ pelvic alignment/range for core engagement not over LS rotation to focus spinal stability support. TOlerated increased resistance during shld ex for strength, didn' t tell pt to add home due to tactile cues for slower pacing control SL open book. Reported decreased tension leg and shld post manual. Physical Therapy Plan Frequency and Duration Frequency of 2x/Week Treatment Duration of 12 treatment (weeks) Plan of Care Start 06/10/25 Date Plan of Care End 09/10/25 Date Therapeutic Interventions Therapeutic Balance Training,Gait Training,Home Exercise Program, Interventions Joint Mobilizations,Manual Therapy,Neuromuscular Re- education,Orthotic/Prosthetic Management,Patient/ Caregiver Education,Self-Care/Home Management,Soft Tissue Mobilization,Taping,Therapeutic Activities, Therapeutic Exercises Modalities Cold Pack/Ice Massage,Electric Stimulation,Hot Packs, Ultrasound Next Visit Focus/Plan Next Note Type Treatment Note Next Visit Plan REcheck addition shld strengthening for AD/trek pole trial, Core series in PT and if ok send home carryover with HOs understand proper form to assist balance. POC: Nustep warm up // bars for balance gait with head turns and trekking pole trial HEP
--- NOTE | 2025-07-15 14:33 | PT.OTN ---
Current Diagnoses Other chronic pain (07/15/25) Pain in right shoulder (07/15/25) Pain in left shoulder (07/15/25) Pain in thoracic spine (07/15/25) Physical Therapy Treatment Note PT OP: Balance, Vestibular, Neuro Start: 06/29/25 13:08 Freq: Status: Active Protocol: Document 07/15/25 13:53 SP (Rec: 07/15/25 15:35 SP [id number]) Out-Patient Physical Therapy Visit Information Visit Information Visit Type Treatment Note Visit Note *word finding Visit Start Time 13:53 Visit Stop Time 14:33 Visit Number 14 Number of SWEEP PRESS OPERATOR Visits 2 Progress Note Due 07/10/25 Evaluation Information Evaluation Date 04/22/25 Precautions Precautions none OP-PT Subjective Patient Comments Patient Comments Pt reports still hurts when lifting, stilld doesn't want to band exercises yet. She will be moving in 3 [place] Pt stated not doing HEP HOs given due to causes pain standing and laying down exercises. She states walk about 1/2 hr and goes by beach on hard pavement only in warmer weather. She does some LAQ, is running. She doesn't go on uneven ground anymore. Patient Questionnaires Lower Extremity Functional Scale LEFS Score 55 LEFS Impairment 20 to 39% Impaired (Score 48-62) Gait Training Gait Activity Uneven Surface Description outdoor gait uneven grass, incline/decline Device Used none Level of Assistance SBA Distance/Duration 15 ft x2 laps Treatment Focus balance recovery Comments slight trunk lean on slanted grass incline/decline, no instability or LOB I can do this, is easy. Neuro Re-Education Treatment Balance Activities stepping over hurdles Details declined- doesn't like it. // bars series Details semitandem stance on foam Equipment //bars Comments HTs, EC up to 18 sec L ft fwd, sec R ft fwd 30 sec cued tall posture, head up, wt shift fwd into front foot equal wB on BLEs. standing chair balance Details Tandem Equipment //bars PRN contace Reps/Duration 30 sec each LE front - good stab- cued wt shift fwd even BLE no LB&Rft pn Comments Good feedback response today Discussion review if performing at home: corner balance - I can't do this at home hurt back after 1 mo so stopped Physical Therapy Assessment Goals Four Impairment impaired gait Short Term Goal (STG patient ambulates with at least 1 trekking pole to ) improve balance and posture 04/29/25: Pt declines either trekking pole or SPC training before/after edu provided for benefit of trekking pole with ambulation. 07/15/25: she continues to declined use of trek poles, will cause her to be off balance, why would I ever use them, I see people use them for hiking on hills. STG Duration -updated 07/15/25 Three Impairment lack of HEP Short Term Goal (STG pt demonstrates indep with HEP - 70% ) 07/15/25; not performing given HEP (showed HOs given), she states they hurt me at home in R hip and back, I do my own exercises, demonstrates LAQ and states walking outside level surfaces about 1/2 hr. STG Duration 6 weeks -updated 07/15/25 Two Impairment impaired DASH score 23 % Short Term Goal (STG improve DASH score 50% - MET ) STG Duration 6 weeks One Impairment LEFS score 18% Short Term Goal (STG improved LEFS score 50% ) 07/15/25: score 55, 68.75 % of maximal function (see scanned document) STG Duration 6 weeks -GOAL MET 07/15/25 Assessment Summary Assessment Pt making gains in static balance uneven surface without UE support today. Improved LEFS score 55% from 18% with improved ease with ADLs home. She reports walking more 1/2 hr without AD, she comments refusal of trek pole for outdoor use. No sway or LOB during assess grassy incline/decline outdoor fora awareness community surfaces. She declined more dynamic stepping activities, I am not doing those things, pointing to hurdles. She states not doing HEP shown HOs given to her at home due hurts R hip but ok here when reviewing compliancy HEP goal. Pt would benefit from trial of HEP performance use of HOs in PT if ok no causing pain continue or DC or need find exercises can do home not bothersome and progress balance. PT to distinguish next tx if pt feels needs to continue and if so need to explain to pt can request more appts beyond 15 approved visits and establish new PT, today's tx pt was inconsistant with how responding to PT overall and benefits to continue or ready to continue on own, she had conflicting comments and responses to inquiries throughout tx. Physical Therapy Plan Frequency and Duration Frequency of 2x/Week Treatment Duration of 12 treatment (weeks) Plan of Care Start 06/10/25 Date Plan of Care End 09/10/25 Date Therapeutic Interventions Therapeutic Balance Training,Gait Training,Home Exercise Program, Interventions Joint Mobilizations,Manual Therapy,Neuromuscular Re- education,Orthotic/Prosthetic Management,Patient/ Caregiver Education,Self-Care/Home Management,Soft Tissue Mobilization,Taping,Therapeutic Activities, Therapeutic Exercises Modalities Cold Pack/Ice Massage,Electric Stimulation,Hot Packs, Ultrasound Next Visit Focus/Plan Next Note Type Treatment Note Next Visit Plan REcheck Core series in PT and if ok send home carryover with HOs understand proper form and education TA draw in engagement to assist balance. POC: Nustep warm up // bars for balance gait with head turns and trekking pole trial (?), trial functional strengthening/bal: squat pick out hand items, up/ down stairs if has at home, step over items, scanning when walking. HEP
--- NOTE | 2025-08-03 14:11 | PT.OPDS ---
Current Diagnoses Other chronic pain (08/03/25) Pain in right shoulder (08/03/25) Pain in left shoulder (08/03/25) Pain in thoracic spine (08/03/25) Visit Care Team Role Provider Type ONEIL Harrison Attending Provider Non-Staff Family Provider Primary Care Provider Referring Provider Specialty: Medical Address: [address] [place] [address], [phone] Email: Visit Number Visit Number Discharge Summary PT OP: Balance, Vestibular, Neuro Start: 06/29/25 13:08 Freq: Status: Active Protocol: Document 08/03/25 13:46 KW (Rec: 08/03/25 14:10 KW Laptop) Out-Patient Physical Therapy Visit Information Visit Information Visit Type Discharge Summary Visit Note *word finding Visit Start Time 14:45 Visit Stop Time 15:25 Visit Number Number of CONFIGURATION MANAGEMENT ADMINISTRATOR Visits 2 Evaluation Information Evaluation Date 04/22/25 Precautions Precautions none OP-PT Subjective Patient Comments Patient Comments today is last PT visit. continues to walk continues to drive R pelvic pain L AC joint pain Munoz Balance Assessment Evaluation Sitting to Standing Independent w/out Hands Ability Unsupported Stance Safely- 2 minutes Sitting Unsupported, Safely- 2 minutes Feet on Floor Standing to Sitting Assist, Control w/Hands Ability Transfer Ability Safely, Hand Use Unsupported Stance- Safely, 10 seconds Eyes Closed Unsupported Stance- Independent, 1 minute Eyes Open Reaching Forward Safely, 5 inches Standing Pick- Up Object From Supervision Floor Look Behind Shoulder Shifts Weight Unilateral - Standing Turning 360 Degrees Turns , < 4 secs Unsupported Stance, (I)- 8 Steps in > 20 secs Alternating Feet on Stair Unsupported Tandem Small Step- 30 seconds Stance Unilateral Leg Lifts Leg/Holds > 3 secs Stance Total Score Munoz Total Score ( 45 out of 56 points) Hip Strength Hip Manual Muscle Testing Left Flexion (L2) 4 Good Abduction 4 Good External Rotation 4 Good Internal Rotation 4 Good Right Flexion (L2) 4 Good Abduction 4 Good External Rotation 4 Good Internal Rotation 4 Good Cardio Equipment Recumbent Stepper (Sci-Fit) Duration (Minutes) 6 Resistance 2 Gym Equipment Shuttle Recovery leg press Details B 25# single 25# Reps/Time x 10 each Shuttle Rebound red clip Exercise Details tandem and narrow DORIS, wt shifting Comments working on balance reactions Shuttle Balance Blue clips Details WBOS, NBOS Reps/Duration 30s ea Comments stilling platform, maintaining balance: -EO/EC -Head turns/nods Sport Cord posterior walking Comments orange cord, walking backward. x 5 reps Manual Therapy Treatment Consent Patient gave verbal Yes consent for manual treatment Soft Tissue Mobilization L shld Body Location L pec, RTC, PROM FF, ABD, HABD then AROM Comments good feedback manual STMs, PROM then cues slow ROM Lower extremities Body Location R anterior hip/quad/groin/adductor Mobilization Type Other Intensity/Depth Superficial Body Position Hooklying Comments LEs supported on bolster. swelling R>L, both observably improve; positive feedback response. Pt i/s in light edema massage proximal to distal. thoracic Body Location L posterolateral ribcage: ES, TS & LS paraspinal, QL, intercostals R 8-10 Body Position R SL Comments gentle light STMs- good feedback response Joint Mobilizations R hip Direction lateral, inferior, anteromedial Comments PROM lat/inferior, MWM AROM hip ER- good feedback response lateral and anteromedial- small range that moves easier Physical Therapy Assessment Goals Four Impairment impaired gait Short Term Goal (STG patient ambulates with at least 1 trekking pole to ) improve balance and posture 04/29/25: Pt declines either trekking pole or SPC training before/after edu provided for benefit of trekking pole with ambulation. 07/15/25: she continues to declined use of trek poles, will cause her to be off balance, why would I ever use them, I see people use them for hiking on hills. REFUSES TO USE STG Duration -updated 07/15/25 Three Impairment lack of HEP Short Term Goal (STG pt demonstrates indep with HEP - 70% ) 07/15/25; not performing given HEP (showed HOs given), she states they hurt me at home in R hip and back, I do my own exercises, demonstrates LAQ and states walking outside level surfaces about 1/2 hr. STG Duration 6 weeks -updated 07/15/25 One Impairment LEFS score 18% Short Term Goal (STG improved LEFS score 50% ) 07/15/25: score 55, 68.75 % of maximal function (see scanned document) STG Duration 6 weeks -GOAL MET 07/15/25 Assessment Summary Assessment strongly recommend walking aid- she refuses moving in with family sooner than later is a good idea recommend back to MD for R hip x-rays, L shoulder x-ray also not doing any exercises at home as instructed. Physical Therapy Plan Discharge Physical Therapy Discharge Reasons Plateau in Progress
== END 2025-08-04 13:17 | disposition home or self-care (01) ==
LOC: PHYS 13:45
PROVIDERS: Family Provider Nurse Practitioner Family; PCP Nurse Practitioner Family; Referring Provider Nurse Practitioner Family; Visit Provider Nurse Practitioner Family
DX: M25.511 Pain in right shoulder (principal); G89.29 Other chronic pain; M25.512 Pain in left shoulder; M54.6 Pain in thoracic spine
CPT/HCPCS: 97110; 97112; 97116; 97140; 97163; 97535